=== PATIENT | female | born 1955 | race African-American/Black ===

== ENCOUNTER → 2018-03-03 | Outpatient (CLI) | payer OTHER ==
--- NOTE | 2018-03-03 16:28 | XCELERA REPORT ---
[address] [address] Lower Extremity Venous Evaluation Name: TALIB KAHN Age: 62 yrs Gender: Female : 1955 Patient Status: Outpatient Patient Location: Study Date: 03/03/2018 03:11 PM Procedure: Color flow and duplex imaging bilaterally of the veins of the lower extremities as well as the Common Femoral veins. Reason For Study: SWELLING Ordering Physician: OSWALDO STRONG Performed By: Jing De Los Santos Right Sided Venous Evaluation Normal vessel filling wall to wall, compression and augmentation as well as Colour flow down to the infrageniculate veins. Left Sided Venous Evaluation Normal vessel filling wall to wall, compression and augmentation as well as Colour flow down to the infrageniculate veins. Interpretation Summary No duplex evidence of DVT or obstruction in the bilateral lower extremities. : OSWALDO STRONG > Kody Márquez
== END ==
LOC: SP 14:58
PROVIDERS: ATTEND Internal Medicine
DX: R22.43 Localized swelling, mass and lump, lower limb, bilateral (principal)
CPT/HCPCS: 93970

== ENCOUNTER 2020-07-28 21:57 | Inpatient (IN) | payer OTHER ==
--- NOTE | 2020-07-28 22:58 | ER Document Report ---
ED Medical Screen (RME) - General Chief Complaint: Shortness Of Breath Stated Complaint: SHORTNESS OF BREATH Time Seen by Provider: 07/28/20 22:47 Primary Care Provider: OSWALDO STRONG MD [Primary Care Provider] - Follow up as needed Mode of Arrival: Ambulatory Information source: Patient Notes: HPI; a 64-year-old female presents to the emergency room complaining of worsening shortness of breath with a cough that started today. Patient states she did a drive-through cover test on July 19 was diagnosed with positive COVID on July 22. States her primary care physician Dr. Strong put her on steroids and antibiotics which she finished today. States she has been self quarantining since she had a positive test results. Denies any chest pain. PE: Alert and oriented x3. Lungs: Scattered rhonchi no wheezes no rales. Heart: Regular rate rhythm without murmurs, rubs, gallops. I have greeted and performed a rapid initial assessment of this patient. A comprehensive ED assessment and evaluation of the patient, analysis of test results and completion of the medical decision making process will be conducted by additional ED providers. I have specifically instructed the patient or family members with the patient to immediately return to any nursing staff should anything change in the patient's condition or with their chief complaint. TRAVEL OUTSIDE OF THE [place] IN LAST 30 DAYS: No Past Medical History Musculoskeltal Medical History: Reports Hx Arthritis - right knee Doctor's Discharge - Discharge Referrals: OSWALDO STRONG MD [Primary Care Provider] - Follow up as needed
[2020-07-28] MEDS ORDERED: ACETAMINOPHEN 325 MG TABLET PO ONE (23:35)
--- NOTE | 2020-07-29 00:58 | RADIOLOGY REPORT (SQ) ---
EXAM DESCRIPTION: XR CHEST 1 VIEW COMPLETED DATE/TME: 07/28/2020 22:56 CLINICAL HISTORY: 64 years, Female, cough COMPARISON: None. NUMBER OF VIEWS: 1 TECHNIQUE: Portable chest LIMITATIONS: None. FINDINGS: Cardiomegaly. Airspace opacities bilaterally. No pneumothorax. Mild elevation right hemidiaphragm IMPRESSION: Bilateral airspace opacities worrisome for pneumonia copyright 2010 [employer]- All Rights Reserved
[2020-07-29] MEDS ORDERED: DEXAMETHASONE SOD PHOS INJ 10 MG/1 ML VIAL IV ONE (03:12)
[2020-07-29 03:13] LABS: HEMATOCRIT 38.8 % (36.0-47.0); HEMOGLOBIN 13.4 g/dL (12.0-15.5); MEAN CORPUSCULAR HEMOGLOBIN 29.6 pg (27.0-33.4); MEAN CORPUSCULAR HGB CONC 34.6 g/dL (32.0-36.0); MEAN CORPUSCULAR VOLUME 86 fl (80-97); PLATELET COUNT 173 10^3/uL (150-450); RED BLOOD COUNT 4.54 10^6/uL (3.72-5.28); RED CELL DISTRIBUTION WIDTH 14.7 % (11.5-14.0); WHITE BLOOD COUNT 13.6 10^3/uL (4.0-10.5)
--- NOTE | 2020-07-29 03:21 | ER Document Report ---
ED General - General Chief Complaint: Shortness Of Breath Stated Complaint: SHORTNESS OF BREATH Time Seen by Provider: 07/28/20 22:47 Primary Care Provider: OSWALDO STRONG MD [Primary Care Provider] - Follow up as needed Mode of Arrival: Ambulatory TRAVEL OUTSIDE OF THE [place] IN LAST 30 DAYS: No - HPI Context: This is a 64-year-old female with a past medical history of diabetes and hypertension presenting to the emergency room with a chief complaint of worsening dyspnea and cough x2 days. Patient states that she had a drive- through COVID test done on July 19 which was found to be positive and reported to her on July 22. Patient had been in her usual state of health until 2 days ago on July 27 when she started to notice that she was having shortness of breath and cough. Patient reports that her physician Dr. Strong put her on steroids and antibiotics which she finished today. Patient states that she has been self quarantining since being told she had a positive COVID test. Patient denies fever, chills, chest pain, rash, loss of sense of taste, loss of sense of smell. Patient denies having any pain. She does state that her shortness of breath is worse with activity and supine position and is improved with sitting upright. Patient denies history of smoking, COPD, CHF or other pulmonary disease. Associated symptoms: Other - See HPI Exacerbated by: Other - See HPI Relieved by: Other - See HPI Past Medical History - General Information source: Patient - Social History Smoking Status: Never Smoker Frequency of alcohol use: None Drug Abuse: None Family History: Reviewed & Not Pertinent Patient has suicidal ideation: No Patient has homicidal ideation: No - Past Medical History Cardiac Medical History: Reports: Hx Hypercholesterolemia, Hx Hypertension Musculoskeletal Medical History: Reports Hx Arthritis - right knee Review of Systems - Review of Systems Constitutional: No symptoms reported EENT: No symptoms reported Cardiovascular: No symptoms reported Respiratory: Cough, Short of breath Gastrointestinal: No symptoms reported Genitourinary: No symptoms reported Female Genitourinary: No symptoms reported Musculoskeletal: No symptoms reported Skin: No symptoms reported Hematologic/Lymphatic: No symptoms reported Neurological/Psychological: No symptoms reported -: Yes All other systems reviewed and negative Physical Exam - Vital signs Vitals: Temp Pulse Resp BP Pulse Ox 102.4 F H 98 22 H 151/83 H 92 07/28/20 23:19 07/28/20 23:19 07/28/20 23:19 07/28/20 23:19 07/28/20 23:19 - Notes Notes: CONSTITUTIONAL [Vital signs reviewed, Patient appears comfortable, Alert and oriented X 3, Normal stature.] HEAD [Atraumatic, Normocephalic.] EYES [Eyes are normal to inspection, No discharge from eyes, Extraocular muscles intact, Sclera are normal, Conjunctiva are normal.] NECK [Normal ROM, No jugular venous distention, No meningeal signs, no carotid bruit. ] RESPIRATORY CHEST [Chest is nontender, patient has crackles noted bilateral lung bases.] CARDIOVASCULAR [Tachycardia, No murmurs, Normal S1 S2, No rub, No gallop.] ABDOMEN [Abdomen is nontender, No pulsatile masses, No other masses, Bowel sounds normal, No distension, No peritoneal signs, No hernias.] BACK [There is no CVA Tenderness, There is no tenderness to palpation, Normal inspection.] UPPER EXTREMITY [Inspection normal, No cyanosis, No clubbing, No edema, 2+ radial pulses.] LOWER EXTREMITY [Inspection normal, No cyanosis, No clubbing, No edema, No calf tenderness, 2+ femoral pulses.] NEURO [No focal motor deficits, No focal sensory deficits, Speech normal.] SKIN [Skin is warm, Skin is dry, Skin is normal color.] LYMPHATIC [No adenopathy in neck.] PSYCHIATRIC [Normal affect. ] Course - Re-evaluation Re-evalutation: 07/29/20 05:13 Results of ED MSE discussed with patient. Recommendation for admission d iscussed with patient patient was agreeable with this. All questions were answered. - Vital Signs Vital signs: Temp Pulse Resp BP Pulse Ox 100.3 F 92 26 H 146/84 H 88 L 07/29/20 02:08 07/29/20 02:30 07/29/20 02:30 07/29/20 02:08 07/29/20 02:30 - Laboratory Result Diagrams: 07/29/20 02:43 07/29/20 04:07 Laboratory results interpreted by me: 07/29/20 07/29/20 02:43 04:07 WBC 13.6 H RDW 14.7 H Seg Neuts % (Manual) 98 H Lymphocytes % (Manual) 2 L Monocytes % (Manual) 0 L Abs Neuts (Manual) 13.3 H Abs Lymphs (Manual) 0.3 L Abs Monocytes (Manual) 0.0 L Chloride 108 H Carbon Dioxide 21 L Glucose 174 H AST 109 H ALT 107 H - Diagnostic Test Radiology reviewed: Reports reviewed - Consults Dr. Bustos Time consulted: 05:12 - Dr. Bustos excepted patient for admission on behalf of Dr. Strong Reason for consultation: 07/29/20 05:17 COVID infection with hypoxia Discharge - Discharge Clinical Impression: COVID-19, Hypoxia Condition: Stable Disposition: ADMITTED INPATIENT Admitting Provider: Klarissa Unit Admitted: IMCU Referrals: OSWALDO STRONG MD [Primary Care Provider] - Follow up as needed
[2020-07-29 03:39] LABS: ABSOLUTE LYMPHOCYTES# (MANUAL) 0.3 10^3/uL (0.5-4.7); BASOPHILS % (MANUAL) 0 % (0-2); EOSINOPHILS % (MANUAL) 0 % (0-6); LYMPHOCYTES % (MANUAL) 2 % (13-45); MONOCYTES % (MANUAL) 0 % (3-13); SEGMENTED NEUTROPHILS % (MAN) 98 % (42-78); TOTAL CELLS COUNTED 100
[2020-07-29 03:40] LABS: OVALOCYTES SLIGHT; POIKILOCYTOSIS SLIGHT; TOXIC GRANULATION SLIGHT; TOXIC VACUOLATION PRESENT
[2020-07-29 03:41] LABS: PLATELET COMMENT ADEQUATE
[2020-07-29 04:54] LABS: ALBUMIN 3.7 g/dL (3.5-5.0); ALKALINE PHOSPHATASE 87 U/L (38-126); ANION GAP 14 (5-19); ASPARTATE AMINO TRANSFERASE 109 U/L (14-36); BILIRUBIN,DIRECT 0.4 mg/dL (0.0-0.4); BILIRUBIN,TOTAL 0.8 mg/dL (0.2-1.3); BLOOD UREA NITROGEN 18 mg/dL (7-20); CARBON DIOXIDE 21 mmol/L (22-30); CHLORIDE 108 mmol/L (98-107); GLUCOSE 174 mg/dL (75-110); POTASSIUM 4.1 mmol/L (3.6-5.0); TOTAL PROTEIN 7.4 g/dL (6.3-8.2)
[2020-07-29 05:11] LABS: ARTERIAL BLOOD BASE EXCESS -0.8 mmol/L; ARTERIAL BLOOD H2CO3 0.92 mmol/L (1.05-1.35); ARTERIAL BLOOD HCO3 21.8 mmol/L (20-24); ARTERIAL BLOOD O2 SATURATION 85.1 % (94-98); ARTERIAL BLOOD PCO2 30.6 mmHg (35-45); ARTERIAL BLOOD PH 7.47 (7.35-7.45); ARTERIAL BLOOD PO2 45.7 mmHg (80-100); ARTERIAL BLOOD TOTAL CO2 22.7 mmol/L (21-25)
[2020-07-29 05:15] LABS: ARTERIAL BLOOD FIO2 2 L
--- NOTE | 2020-07-29 06:41 | EKG REPORT ---
SEVERITY:- BORDERLINE ECG - SINUS TACHYCARDIA PROBABLE LEFT ATRIAL ABNORMALITY : Confirmed by: Maurice Duff MD 29-Jul-2020 06:41:03
[2020-07-29] MEDS ORDERED: DEXTROSE 50%-WATER 25 GM/50 ML DISP.SYRIN IV PRN ×2 (08:39)
[2020-07-29] MEDS ORDERED: GLUCAGON,HUMAN RECOMB 1 MG INJ IM PRN (08:39)
[2020-07-29] MEDS ORDERED: DEXTROSE 40% GEL 15 GM TUBE PO PRN ×2 (08:39)
[2020-07-29] MEDS: CEFTRIAXONE 1 GM/D5W RTU 1 GM/50 ML RTUPB IV SCH (09:10)
[2020-07-29] MEDS: ENOXAPARIN SODIUM INJ 40 MG/0.4 ML DISP.SYRIN SUBCUT SCH (09:10)
[2020-07-29] MEDS: DEXAMETHASONE SOD PHOSPHATE INJ 4 MG/1 ML VIAL IV SCH ×2 (09:11→21:59)
[2020-07-29] MEDS ORDERED: INSULIN LISPRO 100 UNIT/ML 3 ML VIAL ONE (09:15)
[2020-07-29] MEDS ORDERED: REMDESIVIR (EUA) 200 MG in NORMAL SALINE 250 ML IV ONE (10:00)
[2020-07-29] MEDS: LEVOFLOXACIN 750 MG/D5W RTU 750 MG/150 ML RTUPB IV SCH (12:17)
[2020-07-29] MEDS: INSULIN LISPRO 100 UNIT/ML 3 ML VIAL SUBCUT SCH ×3 (12:46→22:00)
[2020-07-29] MEDS ORDERED: (PENDING PHARMACY ID) (Dapagliflozin Propanediol [Farxiga] 10 MG) PO SCH (13:00)
[2020-07-29] MEDS ORDERED: (PENDING PHARMACY ID) (Mirabegron [Myrbetriq] 25 MG) PO SCH (13:00)
[2020-07-29] MEDS ORDERED: NETARSUDIL MESYLATE OU SCH (13:00)
[2020-07-29] MEDS ORDERED: DARIFENACIN HYDROBROMIDE 15 MG PO SCH (13:00)
[2020-07-29] MEDS ORDERED: (PENDING PHARMACY ID) (Losartan Potassium [Losartan Potassium] 100 MG) PO SCH (13:00)
[2020-07-29] MEDS: SITAGLIPTIN PHOSPHATE 50 MG TABLET PO SCH (14:02)
[2020-07-29] MEDS: LOSARTAN POTASSIUM 50 MG TABLET PO SCH (14:03)
[2020-07-29] MEDS: ASPIRIN 81 MG TABLET, ENT COATED PO SCH (14:03)
[2020-07-29 15:46] LABS: APPEARANCE,URINE SLIGHTLY-CLOUDY; BILIRUBIN,URINE NEGATIVE (NEGATIVE); COLOR,URINE YELLOW; GLUCOSE, URINE 150 mg/dL (NEGATIVE); KETONES,URINE NEGATIVE (NEGATIVE); LEUKOCYTE ESTERASE,URINE NEGATIVE (NEGATIVE); NITRITE,URINE NEGATIVE (NEGATIVE); PROTEIN,URINE 100 mg/dL (NEGATIVE); URINE SPECIFIC GRAVITY 1.027; UROBILINOGEN,URINE NEGATIVE mg/dL (<2.0)
[2020-07-29] MEDS: BRIMONIDINE TARTRATE 0.2% OPH SOLN 5 ML OU SCH (18:27)
[2020-07-29] MEDS: TIMOLOL MALEATE 0.5% OPH SOLN 5 ML OU SCH (18:27)
--- NOTE | 2020-07-29 19:09 | PDOC H&P ---
History of Present Illness Admission Date/PCP: 07/29/20 05:24 OSWALDO STRONG MD History of Present Illness: TALIB KAHN is a 64 year old female.She has a history of type 2 diabetes mellitus, hypertension, she presented to the emergency room last night for evaluation of shortness of breath, cough for the last 2 days. She had a drive- through SARS-CoV-2 testing done on July 19, it was a positive test. I had a telehealth encounter with the patient last week when she complained of nasal congestion at the time there was no shortness of breath she indicated that she was positive for SARS-CoV-2 infection but she was feeling fine overall, I prescribed dexamethasone and Z-Eliu for her and advised her to go to the ER if she became short of breath. She became short of breath in the last 2 days progressively getting worse, chest x-ray was done that demonstrated bilateral opacities of the airspace the arterial blood gas on FiO2 2 L, pH 7.47, PCO2 30.6 PO2 45.7, bicarbonate 21.8, oxygen saturation 85.1 Past Medical History Cardiac Medical History: Reports: Hyperlipidema, Hypertension Endocrine Medical History: Reports: Diabetes Mellitus Type 2 Musculoskeltal Medical History: Reports: Arthritis - right knee Social History Smoking Status: Never Smoker Electronic Cigarette use?: No Hx Recreational Drug Use: No Drugs: None Hx Prescription Drug Abuse: No Family History Family History: Reviewed & Not Pertinent Parental Family History Reviewed: Yes Children Family History Reviewed: Yes Sibling(s) Family History Reviewed.: Yes Medication/Allergy Home Medications: Aspirin [Ecotrin 81 mg EC Tablet] 81 mg PO DAILY 07/29/20 Atorvastatin Calcium [Lipitor 20 mg Tablet] 20 mg PO QHS 07/29/20 Azithromycin [Zithromax 250 mg Tablet] 250 mg PO DAILY MDD FILLED 07/24 FOR 5 DAY SUPPLY 07/29/20 Bimatoprost [Lumigan 0.01% Oph Soln 2.5 ml/Bottle] 1 drop OU QHS 07/29/20 Brimonidine Tartrate/Timolol [Combigan 0.2%-0.5% Eye Drops] 1 drop OU BID 07/29/20 Dapagliflozin Propanediol [Farxiga] 10 mg PO DAILY 07/29/20 Darifenacin Hydrobromide [Darifenacin ER] 15 mg PO DAILY 07/29/20 Dexamethasone [Decadron] 6 mg PO DAILY MDD FILLED 07/24 FOR 5 DAY SUPPLY 07/29/20 Losartan Potassium 100 mg PO DAILY 07/29/20 Mirabegron [Myrbetriq] 25 mg PO DAILY 07/29/20 Netarsudil Mesylate [Rhopressa] 1 drop OU DAILY 07/29/20 Sitagliptin Phosphate [Januvia 50 mg Tablet] 100 mg PO DAILY 07/29/20 Allergies/Adverse Reactions: acetaminophen [From Darvocet-N] Adverse Reaction (Verified 07/29/20 07:03) propoxyphene [From Darvocet-N] Adverse Reaction (Verified 07/29/20 07:03) Review of Systems Constitutional: ABSENT: chills, fever(s), headache(s), weight gain, weight loss Eyes: ABSENT: visual disturbances Ears: ABSENT: hearing changes Cardiovascular: ABSENT: chest pain, dyspnea on exertion, edema, orthropnea, palpitations Respiratory: PRESENT: cough, dyspnea, sputum Gastrointestinal: ABSENT: abdominal pain, constipation, diarrhea, hematemesis, hematochezia, nausea, vomiting Genitourinary: ABSENT: dysuria, hematuria Musculoskeletal: ABSENT: joint swelling Integumentary: ABSENT: rash, wounds Neurological: ABSENT: abnormal gait, abnormal speech, confusion, dizziness, focal weakness, syncope Psychiatric: ABSENT: anxiety, depression, homidical ideation, suicidal ideation Endocrine: ABSENT: cold intolerance, heat intolerance, menstrual abnormalities, polydipsia, polyuria Hematologic/Lymphatic: ABSENT: easy bleeding, easy bruising, lymphadenopathy Physical Exam Vital Signs: Temp Pulse Resp BP Pulse Ox 98.3 F 86 19 116/63 95 07/29/20 16:38 07/29/20 16:38 07/29/20 16:38 07/29/20 16:38 07/29/20 16:38 Intake & Output 07/28/20 07/29/20 07/30/20 06:59 06:59 06:59 Intake Total 1245 Balance 1245 Weight 111.6 kg 111.6 kg General appearance: PRESENT: no acute distress Head exam: PRESENT: atraumatic, normocephalic Eye exam: PRESENT: PERRLA Ear exam: PRESENT: normal external ear exam Mouth exam: PRESENT: moist, tongue midline Neck exam: PRESENT: full ROM Respiratory exam: PRESENT: clear to auscultation alejandra, rhonchi Cardiovascular exam: PRESENT: RRR, +S1, +S2 Vascular exam: PRESENT: normal capillary refill GI/Abdominal exam: PRESENT: normal bowel sounds, soft Rectal exam: PRESENT: deferred Neurological exam: PRESENT: alert, CN II-XII grossly intact Psychiatric exam: PRESENT: appropriate affect, normal mood Skin exam: PRESENT: dry, intact, warm Results Laboratory Results: 07/29/20 02:43 07/29/20 04:07 07/29/20 07/29/20 07/29/20 02:43 02:43 03:15 WBC 13.6 H RBC 4.54 Hgb 13.4 Hct 38.8 MCV 86 MCH 29.6 MCHC 34.6 RDW 14.7 H Plt Count 173 Seg Neutrophils % Not Reportable Carbonic Acid Cancelled HCO3/H2CO3 Ratio Cancelled ABG pH Cancelled ABG pCO2 Cancelled ABG pO2 Cancelled ABG HCO3 Cancelled ABG O2 Saturation Cancelled ABG Base Excess Cancelled FiO2 Cancelled Sodium Cancelled Potassium Cancelled Chloride Cancelled Carbon Dioxide Cancelled Anion Gap Cancelled BUN Cancelled Creatinine Cancelled Est GFR ( Amer) Cancelled Est GFR (Non-Af Amer) Cancelled Glucose Cancelled Calcium Cancelled Total Bilirubin Cancelled AST Cancelled Alkaline Phosphatase Cancelled Total Protein Cancelled Albumin Cancelled Urine Color Urine Appearance Urine pH Ur Specific [place] Urine Protein Urine Glucose (UA) Urine Ketones Urine Blood Urine Nitrite Ur Leukocyte Esterase Urine WBC (Auto) Urine RBC (Auto) 07/29/20 07/29/20 07/29/20 03:50 04:07 15:15 WBC RBC Hgb Hct MCV MCH MCHC RDW Plt Count Seg Neutrophils % Carbonic Acid 0.92 L HCO3/H2CO3 Ratio 23:1 ABG pH 7.47 H ABG pCO2 30.6 L ABG pO2 45.7 L ABG HCO3 21.8 ABG O2 Saturation 85.1 L ABG Base Excess -0.8 FiO2 2 L Sodium 142.9 Potassium 4.1 Chloride 108 H Carbon Dioxide 21 L Anion Gap 14 BUN 18 Creatinine 0.70 Est GFR ( Amer) > 60 Est GFR (Non-Af Amer) Glucose 174 H Calcium 9.0 Total Bilirubin 0.8 AST 109 H Alkaline Phosphatase 87 Total Protein 7.4 Albumin 3.7 Urine Color YELLOW Urine Appearance SLIGHTLY-CLOUDY Urine pH 5.0 Ur Specific [place] 1.027 Urine Protein 100 H Urine Glucose (UA) 150 H Urine Ketones NEGATIVE Urine Blood SMALL H Urine Nitrite NEGATIVE Ur Leukocyte Esterase NEGATIVE Urine WBC (Auto) 2 Urine RBC (Auto) 1 07/29/20 07/29/20 04:07 04:07 Creatine Kinase 508 H CK-MB (CK-2) 1.62 Impressions: Chest X-Ray 07/28/20 22:56 IMPRESSION: Bilateral airspace opacities worrisome for pneumonia copyright 2011 [employer]- All Rights Reserved Assessment & Plan - Diagnosis (1) Acute hypoxemic respiratory failure Is this a current diagnosis for this admission?: Yes Plan: She has severe hypoxemic respiratory failure presently not requiring noninvasive positive pressure ventilation, start high flow oxygen.Patient need to be monitored very closely, she is very hypoxemic the PO2 is 45.7 on FiO2 of 2 L the PO2/FiO2 ratio is less than 200 suggesting severe hypoxemia (2) Pneumonia due to COVID-19 virus Is this a current diagnosis for this admission?: Yes Plan: She has COVID-19 positive test (U07.1, COVID-19) with Acute Pneumonia (J12.89, Other viral pneumonia) (If respiratory failure or sepsis present, add as separate assessment) Cannot completely rule out bacterial pneumonia, she will be treated with intravenous dexamethasone, antibacterial, Remdesivir 200 mg IV loading dose then 100 mg IV daily for a total of 5 days (3) T2DM (type 2 diabetes mellitus) Qualifiers: Diabetes mellitus nursing home insulin use: without predatory animal exterminator use Diabetes mellitus complication status: with neurologic complications Diabetes mellitus complication detail: with polyneuropathy Qualified Code(s): E11.42 - Type 2 diabetes mellitus with diabetic polyneuropathy Is this a current diagnosis for this admission?: Yes Plan: Continue present regimen for diabetes - Time Time Spent: Greater than 70 Minutes Critical Time spent with patient: 35 or more minutes Medications reviewed and adjusted accordingly: Yes Anticipated Discharge Disposition: Home, Self Care Anticipated Discharge Timeframe: 10 days - Inpatient Certification Based on my medical assessment, after consideration of the patient's comorbidities, presenting symptoms, or acuity I expect that the services needed warrant INPATIENT care.: Yes I certify that my determination is in accordance with my understanding of Medicare's requirements for reasonable and necessary INPATIENT services [42 CFR 412.3e].: Yes
[2020-07-29] MEDS: LATANOPROST 0.005% OPH SOLN 2.5 ML OU SCH (22:00)
[2020-07-29] MEDS: ATORVASTATIN CALCIUM 20 MG TABLET PO SCH (22:00)
[2020-07-29] MEDS ORDERED: (PENDING PHARMACY ID) (Bimatoprost [Lumigan 0.01% Oph Soln 2.5 Ml/Bottle] 1 DROP) OU SCH (22:00)
[2020-07-30 06:09] LABS: HEMATOCRIT 36.8 % (36.0-47.0); HEMOGLOBIN 12.5 g/dL (12.0-15.5); MEAN CORPUSCULAR HEMOGLOBIN 28.9 pg (27.0-33.4); MEAN CORPUSCULAR VOLUME 85 fl (80-97); PLATELET COUNT 209 10^3/uL (150-450); RED BLOOD COUNT 4.33 10^6/uL (3.72-5.28); RED CELL DISTRIBUTION WIDTH 14.8 % (11.5-14.0); WHITE BLOOD COUNT 15.1 10^3/uL (4.0-10.5)
[2020-07-30 06:35] LABS: ALBUMIN 3.3 g/dL (3.5-5.0); ALKALINE PHOSPHATASE 79 U/L (38-126); ANION GAP 12 (5-19); ASPARTATE AMINO TRANSFERASE 143 U/L (14-36); BILIRUBIN,DIRECT 0.3 mg/dL (0.0-0.4); BILIRUBIN,TOTAL 0.5 mg/dL (0.2-1.3); BLOOD UREA NITROGEN 23 mg/dL (7-20); CALCIUM 8.6 mg/dL (8.4-10.2); CARBON DIOXIDE 23 mmol/L (22-30); CHLORIDE 111 mmol/L (98-107); GLUCOSE 173 mg/dL (75-110); POTASSIUM 4.4 mmol/L (3.6-5.0)
[2020-07-30 06:40] LABS: ABSOLUTE LYMPHOCYTES# (MANUAL) 0.8 10^3/uL (0.5-4.7); ABSOLUTE MONOCYTES # (MANUAL) 0.8 10^3/uL (0.1-1.4); BASOPHILS % (MANUAL) 0 % (0-2); EOSINOPHILS % (MANUAL) 0 % (0-6); LYMPHOCYTES % (MANUAL) 5 % (13-45); MONOCYTES % (MANUAL) 5 % (3-13); SEGMENTED NEUTROPHILS % (MAN) 90 % (42-78); TOTAL CELLS COUNTED 100
[2020-07-30 06:41] LABS: POLYCHROMASIA SLIGHT
[2020-07-30 06:42] LABS: ANISOCYTOSIS SLIGHT; PLATELET COMMENT ADEQUATE; SCHISTOCYTES SLIGHT; TEAR DROP CELLS SLIGHT
[2020-07-30] MEDS: INSULIN LISPRO 100 UNIT/ML 3 ML VIAL SUBCUT SCH ×4 (07:30→22:41)
[2020-07-30] MEDS: LOSARTAN POTASSIUM 50 MG TABLET PO SCH (09:10)
[2020-07-30] MEDS: CEFTRIAXONE 1 GM/D5W RTU 1 GM/50 ML RTUPB IV SCH (09:10)
[2020-07-30] MEDS: SITAGLIPTIN PHOSPHATE 50 MG TABLET PO SCH (09:10)
[2020-07-30] MEDS: DEXAMETHASONE SOD PHOSPHATE INJ 4 MG/1 ML VIAL IV SCH ×2 (09:10→22:42)
[2020-07-30] MEDS: ASPIRIN 81 MG TABLET, ENT COATED PO SCH (09:10)
[2020-07-30] MEDS: TIMOLOL MALEATE 0.5% OPH SOLN 5 ML OU SCH ×2 (09:12→17:23)
[2020-07-30] MEDS: ENOXAPARIN SODIUM INJ 40 MG/0.4 ML DISP.SYRIN SUBCUT SCH (09:13)
[2020-07-30] MEDS: BRIMONIDINE TARTRATE 0.2% OPH SOLN 5 ML OU SCH ×2 (09:13→17:24)
[2020-07-30] MEDS: REMDESIVIR (EUA) 100 MG in NORMAL SALINE 250 ML IV SCH (10:52)
[2020-07-30] MEDS: LEVOFLOXACIN 750 MG/D5W RTU 750 MG/150 ML RTUPB IV SCH (11:58)
--- NOTE | 2020-07-30 15:36 | RADIOLOGY REPORT (SQ) ---
EXAM DESCRIPTION: PICC INSERTION IMAGES COMPLETED DATE/TIME: 07/30/2020 2:26 pm REASON FOR STUDY: picc INSERTATION COMPARISON: None. FLUOROSCOPY TIME: 2 minutes 35 seconds. 1 images saved to PACS. TECHNIQUE: Fluoroscopic and ultrasound guided PICC placement. LIMITATIONS: None. PROCEDURE: After written consent and assessment were obtained, the patient was brought into the fluo roscopy room and placed supine on the table. Ultrasound evaluation of potential access sites were per formed. After successfully identifying a patent left basilic vein, the left arm was prepped and drape d in a sterile fashion along with the ultrasound probe. The entry site was anesthetized with 1% lidoc anais. A 21 gauge 7 cm needle was advanced through the skin and into the basilic vein under live ultra sound guidance. An ultrasound image was saved to PACS confirming access site. A .018 guide wire was then inserted through the needle and into the venous system. The needle was then removed and an 11 b lade scalpel was used to make a 1cm skin incision. A 5 fr peel-away sheath was advanced over the wir e and into the venous system. A measurement was then made using the existing wire and live fluoroscop ic guidance. The wire was then removed and trimmed. The PICC was advanced through the peel-away sheat h and into the venous system. The peel-away sheath was removed and the catheter was adhered to the pa tients arm with a stat lock. The catheter was then aspirated and flushed and a sterile bandage was pl aced over the access site. A fluoroscopic spot image was saved to PACS confirming the catheter tip w ithin the superior vena cava. IMPRESSION: SUCCESSFUL PLACEMENT OF A 5 FR DUAL LUMEN 43 CM PICC IN THE LEFT BASILIC VEIN. COMMENT: Patient medication list reviewed: Yes- Quality ID# 130:Eligible professional attests to doc umenting in the medical record they obtained, updated, or reviewed the patient's current medications. . Quality ID 145: Final reports for procedures using fluoroscopy that document radiation exposure renzo leslie, or exposure time and number of fluorographic images (if radiation exposure indices are not avail able) Quality ID #76: The patient was prepped and draped using maximum sterile barrier technique including cap, mask, sterile gown, sterile gloves, a large sterile sheet, hand hygiene, and 2% Chlorhexidine fo r cutaneous antisepsis. When ultrasound is used, sterile ultrasound techniques are followed requiring sterile gel and sterile probes. TECHNICAL DOCUMENTATION: JOB ID: [id number] 2010 [employer]- All Rights Reserved rev-03/11 Reading location - IP/workstation name: [email or web address]
--- NOTE | 2020-07-30 19:24 | PDOC PROGRESS REPORT ---
Subjective Progress Note for:: 07/30/20 Subjective:: Patient seen by the bedside, she was admitted yesterday for the management of could be pneumonia with a background of acute hypoxemic respiratory failure, she continues to require high flow oxygen. Reason For Visit: COVID 19 PNEUMONIA Physical Exam Vital Signs: Temp Pulse Resp BP Pulse Ox 98.2 F 77 20 141/78 H 90 L 07/30/20 16:45 07/30/20 16:45 07/30/20 16:45 07/30/20 16:45 07/30/20 16:45 Intake & Output 07/29/20 07/30/20 07/31/20 06:59 06:59 06:59 Intake Total 1922 450 Balance 1922 450 Weight 111.6 kg 111.6 kg General appearance: PRESENT: no acute distress Eye exam: PRESENT: PERRLA Respiratory exam: PRESENT: clear to auscultation alejandra, rhonchi Cardiovascular exam: PRESENT: +S1, +S2 GI/Abdominal exam: PRESENT: soft Neurological exam: PRESENT: alert Results Laboratory Results: 07/30/20 05:35 07/30/20 05:35 07/30/20 07/30/20 05:35 05:35 WBC 15.1 H RBC 4.33 Hgb 12.5 Hct 36.8 MCV 85 MCH 28.9 MCHC 34.0 RDW 14.8 H Plt Count 209 Seg Neutrophils % Not Reportable Sodium 146.2 H Potassium 4.4 Chloride 111 H Carbon Dioxide 23 Anion Gap 12 BUN 23 H Creatinine 0.72 Est GFR ( Amer) > 60 Glucose 173 H Calcium 8.6 Total Bilirubin 0.5 AST 143 H Alkaline Phosphatase 79 Total Protein 7.0 Albumin 3.3 L 07/29/20 07/29/20 07/30/20 04:07 04:07 05:35 Creatine Kinase 508 H CK-MB (CK-2) 1.62 Troponin I 0.019 Impressions: Chest X-Ray 07/28/20 22:56 IMPRESSION: Bilateral airspace opacities worrisome for pneumonia copyright 2011 [employer]- All Rights Reserved PICC Line Insertion 07/30/20 00:00 IMPRESSION: SUCCESSFUL PLACEMENT OF A 5 FR DUAL LUMEN 43 CM PICC IN THE LEFT BASILIC VEIN. Assessment & Plan - Diagnosis (1) Acute hypoxemic respiratory failure Is this a current diagnosis for this admission?: Yes Plan: Patient continues to require supplemental oxygen through a nonrebreather mask interchanged with high flow oxygen. She does not require presently mechanical ventilation or noninvasive positive pressure ventilation. (2) Pneumonia due to COVID-19 virus Is this a current diagnosis for this admission?: Yes Plan: Patient presently on IV dexamethasone 6 mg in divided doses for a total of 10 days, intravenous remdesivir for a total of 5 days, IV antibiotic (3) T2DM (type 2 diabetes mellitus) Qualifiers: Diabetes mellitus snf insulin use: without snf use Diabetes mellitus complication status: with neurologic complications Diabetes mellitus complication detail: with polyneuropathy Qualified Code(s): E11.42 - Type 2 diabetes mellitus with diabetic polyneuropathy Is this a current diagnosis for this admission?: Yes Plan: Patient continue present antidiabetic regimen - Time Time Spent with patient: 35 or more minutes Level of Care: IMCU Medications reviewed and adjusted accordingly: Yes Anticipated discharge: Home Anticipated DC Timeframe: Other - Inpatient Certification Based on my medical assessment, after consideration of the patient's comorbidities, presenting symptoms, or acuity I expect that the services needed warrant INPATIENT care.: Yes I certify that my determination is in accordance with my understanding of Medicare's requirements for reasonable and necessary INPATIENT services [42 CFR 412.3e].: Yes
[2020-07-30] MEDS: ATORVASTATIN CALCIUM 20 MG TABLET PO SCH (22:42)
[2020-07-30] MEDS: LATANOPROST 0.005% OPH SOLN 2.5 ML OU SCH (22:59)
[2020-07-31 04:22] LABS: ABSOLUTE LYMPHOCYTES (AUTO) 0.6 10^3/uL (0.5-4.7); ABSOLUTE MONOCYTES (AUTO) 0.8 10^3/uL (0.1-1.4); ABSOLUTE NEUT (AUTO) 9.7 10^3/uL (1.7-8.2); BASOPHILS % (AUTO) 0.2 % (0-2); HEMATOCRIT 37.6 % (36.0-47.0); HEMOGLOBIN 12.6 g/dL (12.0-15.5); LYMPHOCYTES % (AUTO) 5.1 % (13-45); MEAN CORPUSCULAR HEMOGLOBIN 28.7 pg (27.0-33.4); MEAN CORPUSCULAR HGB CONC 33.4 g/dL (32.0-36.0); MEAN CORPUSCULAR VOLUME 86 fl (80-97); MONOCYTES % (AUTO) 7.2 % (3-13); PLATELET COUNT 224 10^3/uL (150-450); RED BLOOD COUNT 4.37 10^6/uL (3.72-5.28); RED CELL DISTRIBUTION WIDTH 14.8 % (11.5-14.0); SEGMENTED NEUTROPHILS % (AUTO) 87.5 % (42-78); TOTAL CELLS COUNTED % (AUTO) 100 %; WHITE BLOOD COUNT 11.1 10^3/uL (4.0-10.5)
[2020-07-31 04:44] LABS: ALBUMIN 2.9 g/dL (3.5-5.0); ALKALINE PHOSPHATASE 72 U/L (38-126); ANION GAP 10 (5-19); ASPARTATE AMINO TRANSFERASE 68 U/L (14-36); BILIRUBIN,DIRECT 0.2 mg/dL (0.0-0.4); BILIRUBIN,TOTAL 0.6 mg/dL (0.2-1.3); BLOOD UREA NITROGEN 24 mg/dL (7-20); CALCIUM 8.9 mg/dL (8.4-10.2); CARBON DIOXIDE 25 mmol/L (22-30); CHLORIDE 107 mmol/L (98-107); GLUCOSE 177 mg/dL (75-110); POTASSIUM 4.5 mmol/L (3.6-5.0); TOTAL PROTEIN 6.2 g/dL (6.3-8.2)
[2020-07-31] MEDS: RINGERS SOLUTION,LACTATED 1,000 ML IV PRN (05:22)
[2020-07-31] MEDS: INSULIN LISPRO 100 UNIT/ML 3 ML VIAL SUBCUT SCH ×4 (08:27→23:08)
[2020-07-31] MEDS: CEFTRIAXONE 1 GM/D5W RTU 1 GM/50 ML RTUPB IV SCH (10:11)
[2020-07-31] MEDS: LEVOFLOXACIN 750 MG/D5W RTU 750 MG/150 ML RTUPB IV SCH (10:11)
[2020-07-31] MEDS: ENOXAPARIN SODIUM INJ 40 MG/0.4 ML DISP.SYRIN SUBCUT SCH (10:11)
[2020-07-31] MEDS: LOSARTAN POTASSIUM 50 MG TABLET PO SCH (10:12)
[2020-07-31] MEDS: ASPIRIN 81 MG TABLET, ENT COATED PO SCH (10:12)
[2020-07-31] MEDS: SITAGLIPTIN PHOSPHATE 50 MG TABLET PO SCH (10:12)
[2020-07-31] MEDS: BRIMONIDINE TARTRATE 0.2% OPH SOLN 5 ML OU SCH ×2 (10:12→18:09)
[2020-07-31] MEDS: DEXAMETHASONE SOD PHOSPHATE INJ 4 MG/1 ML VIAL IV SCH ×2 (10:12→23:07)
[2020-07-31] MEDS: TIMOLOL MALEATE 0.5% OPH SOLN 5 ML OU SCH ×2 (10:13→18:10)
[2020-07-31] MEDS: REMDESIVIR (EUA) 100 MG in NORMAL SALINE 250 ML IV SCH (11:55)
--- NOTE | 2020-07-31 17:41 | PDOC PROGRESS REPORT ---
Subjective Progress Note for:: 07/31/20 Subjective:: Patient was seen by the bedside, she continues to require high flow oxygen via a nonrebreather, she stated that the shortness of breath is improved some, a follow-up chest x-ray to be obtained today. She will continue remdesivir for a total of 5 days, dexamethasone for a total of 10 days, IV antibiotic Reason For Visit: COVID 19 PNEUMONIA Physical Exam Vital Signs: Temp Pulse Resp BP Pulse Ox 98.1 F 82 26 H 141/73 H 88 L 07/31/20 16:39 07/31/20 16:39 07/31/20 16:39 07/31/20 16:39 07/31/20 16:39 Intake & Output 07/30/20 07/31/20 08/01/20 06:59 06:59 06:59 Intake Total 1922 450 450 Balance 1922 450 450 Weight 111.6 kg 112.7 kg General appearance: PRESENT: no acute distress Eye exam: PRESENT: PERRLA Respiratory exam: PRESENT: rhonchi Cardiovascular exam: PRESENT: +S1, +S2 GI/Abdominal exam: PRESENT: soft Neurological exam: PRESENT: alert Results Laboratory Results: 07/31/20 03:45 07/31/20 03:45 07/31/20 07/31/20 03:45 03:45 WBC 11.1 H RBC 4.37 Hgb 12.6 Hct 37.6 MCV 86 MCH 28.7 MCHC 33.4 RDW 14.8 H Plt Count 224 Seg Neutrophils % 87.5 H Sodium 141.8 Potassium 4.5 Chloride 107 Carbon Dioxide 25 Anion Gap 10 BUN 24 H Creatinine 0.73 Est GFR ( Amer) > 60 Glucose 177 H Calcium 8.9 Total Bilirubin 0.6 AST 68 H Alkaline Phosphatase 72 Total Protein 6.2 L Albumin 2.9 L 07/29/20 07/29/20 07/30/20 04:07 04:07 05:35 Creatine Kinase 508 H CK-MB (CK-2) 1.62 Troponin I 0.019 Impressions: Chest X-Ray 07/28/20 22:56 IMPRESSION: Bilateral airspace opacities worrisome for pneumonia copyright 2011 [employer]- All Rights Reserved PICC Line Insertion 07/30/20 00:00 IMPRESSION: SUCCESSFUL PLACEMENT OF A 5 FR DUAL LUMEN 43 CM PICC IN THE LEFT BASILIC VEIN. Assessment & Plan - Diagnosis (1) Acute hypoxemic respiratory failure Is this a current diagnosis for this admission?: Yes Plan: Patient continues to require supplemental oxygen through a nonrebreather mask interchanged with high flow oxygen. She does not require presently mechanical ventilation or noninvasive positive pressure ventilation. (2) Pneumonia due to COVID-19 virus Is this a current diagnosis for this admission?: Yes Plan: Patient presently on IV dexamethasone 6 mg in divided doses for a total of 10 days, intravenous remdesivir for a total of 5 days, IV antibiotic (3) T2DM (type 2 diabetes mellitus) Qualifiers: Diabetes mellitus senior living insulin use: without senior living use Diabetes mellitus complication status: with neurologic complications Diabetes mellitus complication detail: with polyneuropathy Qualified Code(s): E11.42 - Type 2 diabetes mellitus with diabetic polyneuropathy Is this a current diagnosis for this admission?: Yes Plan: Patient continue present antidiabetic regimen - Time Time Spent with patient: 35 or more minutes Level of Care: IMCU Medications reviewed and adjusted accordingly: Yes Anticipated discharge: Home Anticipated DC Timeframe: Other
--- NOTE | 2020-07-31 19:26 | RADIOLOGY REPORT (SQ) ---
EXAM DESCRIPTION: CHEST SINGLE VIEW IMAGES COMPLETED DATE/TIME: 07/31/2020 6:38 pm REASON FOR STUDY: pneumonia COMPARISON: 07/29/2020 TECHNIQUE: Single frontal radiographic view of the chest acquired. NUMBER OF VIEWS: One view. LIMITATIONS: None. FINDINGS: LUNGS AND PLEURA: No pneumothorax. Similar bibasilar consolidation and interstitial thick ening. Probable small bilateral Pleural effusion. MEDIASTINUM AND HILAR STRUCTURES: Stable. HEART AND VASCULAR STRUCTURES: Stable. BONES: No acute findings. HARDWARE: Left PICC line catheter tip overlies the RA -SVC junction. OTHER: No other significant finding. IMPRESSION: Similar bibasilar consolidation and interstitial thickening. Probable small bilateral P leural effusion. TECHNICAL DOCUMENTATION: JOB ID: [id number] 2010 [employer]- All Rights Reserved Reading location - IP/workstation name: [email or web address]
[2020-07-31] MEDS: ATORVASTATIN CALCIUM 20 MG TABLET PO SCH (23:08)
[2020-07-31] MEDS: TEMAZEPAM 15 MG CAPSULE PO SCH (23:09)
[2020-07-31] MEDS: LATANOPROST 0.005% OPH SOLN 2.5 ML OU SCH (23:10)
[2020-08-01] MEDS: RINGERS SOLUTION,LACTATED 1,000 ML IV PRN ×2 (00:49→22:03)
[2020-08-01 06:20] LABS: ABSOLUTE LYMPHOCYTES (AUTO) 0.5 10^3/uL (0.5-4.7); ABSOLUTE MONOCYTES (AUTO) 0.7 10^3/uL (0.1-1.4); ABSOLUTE NEUT (AUTO) 7.3 10^3/uL (1.7-8.2); BASOPHILS % (AUTO) 0.2 % (0-2); EOSINOPHILS % (AUTO) 0.1 % (0-6); HEMATOCRIT 35.8 % (36.0-47.0); HEMOGLOBIN 12.4 g/dL (12.0-15.5); LYMPHOCYTES % (AUTO) 6.3 % (13-45); MEAN CORPUSCULAR HEMOGLOBIN 29.5 pg (27.0-33.4); MEAN CORPUSCULAR HGB CONC 34.7 g/dL (32.0-36.0); MEAN CORPUSCULAR VOLUME 85 fl (80-97); MONOCYTES % (AUTO) 7.7 % (3-13); PLATELET COUNT 214 10^3/uL (150-450); RED BLOOD COUNT 4.21 10^6/uL (3.72-5.28); RED CELL DISTRIBUTION WIDTH 14.5 % (11.5-14.0); SEGMENTED NEUTROPHILS % (AUTO) 85.7 % (42-78); TOTAL CELLS COUNTED % (AUTO) 100 %; WHITE BLOOD COUNT 8.5 10^3/uL (4.0-10.5)
[2020-08-01 06:40] LABS: ALBUMIN 2.8 g/dL (3.5-5.0); ALKALINE PHOSPHATASE 70 U/L (38-126); ANION GAP 8 (5-19); ASPARTATE AMINO TRANSFERASE 38 U/L (14-36); BILIRUBIN,DIRECT 0.2 mg/dL (0.0-0.4); BILIRUBIN,TOTAL 0.6 mg/dL (0.2-1.3); BLOOD UREA NITROGEN 18 mg/dL (7-20); CALCIUM 8.7 mg/dL (8.4-10.2); CARBON DIOXIDE 27 mmol/L (22-30); CHLORIDE 107 mmol/L (98-107); GLUCOSE 171 mg/dL (75-110); POTASSIUM 4.2 mmol/L (3.6-5.0); TOTAL PROTEIN 6.2 g/dL (6.3-8.2)
[2020-08-01] MEDS ORDERED: NORMAL SALINE 10 ML SDV (AFTER EACH USE) IV PRN (07:00)
[2020-08-01] MEDS: INSULIN LISPRO 100 UNIT/ML 3 ML VIAL SUBCUT SCH ×4 (08:25→22:11)
[2020-08-01] MEDS: SITAGLIPTIN PHOSPHATE 50 MG TABLET PO SCH (09:34)
[2020-08-01] MEDS: ASPIRIN 81 MG TABLET, ENT COATED PO SCH (09:34)
[2020-08-01] MEDS: LEVOFLOXACIN 750 MG/D5W RTU 750 MG/150 ML RTUPB IV SCH (09:35)
[2020-08-01] MEDS: DEXAMETHASONE SOD PHOSPHATE INJ 4 MG/1 ML VIAL IV SCH ×2 (09:35→22:08)
[2020-08-01] MEDS: CEFTRIAXONE 1 GM/D5W RTU 1 GM/50 ML RTUPB IV SCH (09:35)
[2020-08-01] MEDS: LOSARTAN POTASSIUM 50 MG TABLET PO SCH (09:35)
[2020-08-01] MEDS: TIMOLOL MALEATE 0.5% OPH SOLN 5 ML OU SCH ×2 (09:39→17:21)
[2020-08-01] MEDS: BRIMONIDINE TARTRATE 0.2% OPH SOLN 5 ML OU SCH ×2 (09:40→17:20)
[2020-08-01] MEDS: ENOXAPARIN SODIUM INJ 40 MG/0.4 ML DISP.SYRIN SUBCUT SCH (09:41)
[2020-08-01] MEDS: NORMAL SALINE 10 ML SDV (SCHEDULED) IV SCH ×2 (09:41→22:11)
[2020-08-01] MEDS: REMDESIVIR (EUA) 100 MG in NORMAL SALINE 250 ML IV SCH (11:27)
--- NOTE | 2020-08-01 21:53 | PDOC PROGRESS REPORT ---
Subjective Progress Note for:: 08/01/20 Subjective:: Patient was seen by the bedside, she continues to require high flow oxygen via a nonrebreather, she stated that the shortness of breath is improved some, She will continue remdesivir for a total of 5 days, dexamethasone for a total of 10 days, IV antibiotic Reason For Visit: COVID 19 PNEUMONIA Physical Exam Vital Signs: Temp Pulse Resp BP Pulse Ox 98.2 F 82 19 130/65 H 91 L 08/01/20 17:01 08/01/20 19:00 08/01/20 17:01 08/01/20 17:01 08/01/20 17:01 Intake & Output 07/31/20 08/01/20 08/02/20 06:59 06:59 06:59 Intake Total 450 1450 450 Balance 450 1450 450 Weight 112.7 kg 110.9 kg General appearance: PRESENT: no acute distress Eye exam: PRESENT: PERRLA Respiratory exam: PRESENT: clear to auscultation alejandra Cardiovascular exam: PRESENT: +S1, +S2 GI/Abdominal exam: PRESENT: soft Neurological exam: PRESENT: alert Results Laboratory Results: 08/01/20 06:00 08/01/20 06:00 08/01/20 08/01/20 06:00 06:00 WBC 8.5 RBC 4.21 Hgb 12.4 Hct 35.8 L MCV 85 MCH 29.5 MCHC 34.7 RDW 14.5 H Plt Count 214 Seg Neutrophils % 85.7 H Sodium 141.9 Potassium 4.2 Chloride 107 Carbon Dioxide 27 Anion Gap 8 BUN 18 Creatinine 0.77 Est GFR ( Amer) > 60 Glucose 171 H Calcium 8.7 Total Bilirubin 0.6 AST 38 H Alkaline Phosphatase 70 Total Protein 6.2 L Albumin 2.8 L 07/29/20 14:06 Sputum Gram Stain - Final 07/29/20 14:06 Sputum Sputum Culture - Final C.albicans/C.dubliniensis Normal Louise 07/29/20 07/29/20 07/30/20 04:07 04:07 05:35 Creatine Kinase 508 H CK-MB (CK-2) 1.62 Troponin I 0.019 Impressions: PICC Line Insertion 07/30/20 00:00 IMPRESSION: SUCCESSFUL PLACEMENT OF A 5 FR DUAL LUMEN 43 CM PICC IN THE LEFT BASILIC VEIN. Chest X-Ray 07/31/20 00:00 IMPRESSION: Similar bibasilar consolidation and interstitial thickening. Probable small bilateral Pleural effusion. Assessment & Plan - Diagnosis (1) Acute hypoxemic respiratory failure Is this a current diagnosis for this admission?: Yes Plan: Patient continues to require supplemental oxygen through a nonrebreather mask interchanged with high flow oxygen. She does not require presently mechanical ventilation or noninvasive positive pressure ventilation. (2) Pneumonia due to COVID-19 virus Is this a current diagnosis for this admission?: Yes Plan: Patient presently on IV dexamethasone 6 mg in divided doses for a total of 10 days, intravenous remdesivir for a total of 5 days, IV antibiotic (3) T2DM (type 2 diabetes mellitus) Qualifiers: Diabetes mellitus residential insulin use: without extermination supervisor use Diabetes mellitus complication status: with neurologic complications Diabetes mellitus complication detail: with polyneuropathy Qualified Code(s): E11.42 - Type 2 diabetes mellitus with diabetic polyneuropathy Is this a current diagnosis for this admission?: Yes Plan: Patient continue present antidiabetic regimen - Time Time Spent with patient: 35 or more minutes Level of Care: IMCU Medications reviewed and adjusted accordingly: Yes Anticipated discharge: Home Anticipated DC Timeframe: Other
[2020-08-01] MEDS: TEMAZEPAM 15 MG CAPSULE PO SCH (22:08)
[2020-08-01] MEDS: ATORVASTATIN CALCIUM 20 MG TABLET PO SCH (22:08)
[2020-08-01] MEDS: LATANOPROST 0.005% OPH SOLN 2.5 ML OU SCH (22:10)
[2020-08-02 07:11] LABS: HEMATOCRIT 37.5 % (36.0-47.0); MEAN CORPUSCULAR HEMOGLOBIN 29.4 pg (27.0-33.4); MEAN CORPUSCULAR HGB CONC 34.6 g/dL (32.0-36.0); MEAN CORPUSCULAR VOLUME 85 fl (80-97); PLATELET COUNT 225 10^3/uL (150-450); RED CELL DISTRIBUTION WIDTH 14.3 % (11.5-14.0); WHITE BLOOD COUNT 8.9 10^3/uL (4.0-10.5)
[2020-08-02 08:11] LABS: ABSOLUTE LYMPHOCYTES# (MANUAL) 1.2 10^3/uL (0.5-4.7); ABSOLUTE MONOCYTES # (MANUAL) 0.4 10^3/uL (0.1-1.4); BAND NEUTROPHILS % (MANUAL) 1 % (3-5); BASOPHILS % (MANUAL) 0 % (0-2); EOSINOPHILS % (MANUAL) 1 % (0-6); LYMPHOCYTES % (MANUAL) 13 % (13-45); MONOCYTES % (MANUAL) 5 % (3-13); SEGMENTED NEUTROPHILS % (MAN) 79 % (42-78); TOTAL CELLS COUNTED 100
[2020-08-02 08:13] LABS: PLATELET COMMENT ADEQUATE; RBC MORPHOLOGY COMMENT NORMO-CYTIC/CHROMIC
[2020-08-02] MEDS: INSULIN LISPRO 100 UNIT/ML 3 ML VIAL SUBCUT SCH ×4 (08:18→21:25)
[2020-08-02] MEDS: RINGERS SOLUTION,LACTATED 1,000 ML IV PRN ×2 (10:20→23:48)
[2020-08-02] MEDS: CEFTRIAXONE 1 GM/D5W RTU 1 GM/50 ML RTUPB IV SCH (10:22)
[2020-08-02] MEDS: DEXAMETHASONE SOD PHOSPHATE INJ 4 MG/1 ML VIAL IV SCH ×2 (10:23→21:19)
[2020-08-02] MEDS: ASPIRIN 81 MG TABLET, ENT COATED PO SCH (10:24)
[2020-08-02] MEDS: LOSARTAN POTASSIUM 50 MG TABLET PO SCH (10:24)
[2020-08-02] MEDS: SITAGLIPTIN PHOSPHATE 50 MG TABLET PO SCH (10:24)
[2020-08-02] MEDS: ENOXAPARIN SODIUM INJ 40 MG/0.4 ML DISP.SYRIN SUBCUT SCH (10:25)
[2020-08-02] MEDS: NORMAL SALINE 10 ML SDV (SCHEDULED) IV SCH ×2 (10:25→21:19)
[2020-08-02] MEDS: TIMOLOL MALEATE 0.5% OPH SOLN 5 ML OU SCH ×2 (10:28→17:59)
[2020-08-02] MEDS: BRIMONIDINE TARTRATE 0.2% OPH SOLN 5 ML OU SCH ×2 (10:29→18:00)
[2020-08-02] MEDS: LEVOFLOXACIN 750 MG/D5W RTU 750 MG/150 ML RTUPB IV SCH (11:30)
[2020-08-02] MEDS: REMDESIVIR (EUA) 100 MG in NORMAL SALINE 250 ML IV SCH (13:33)
--- NOTE | 2020-08-02 18:59 | RADIOLOGY REPORT (SQ) ---
EXAM DESCRIPTION: CHEST SINGLE VIEW IMAGES COMPLETED DATE/TIME: 08/02/2020 6:45 pm REASON FOR STUDY: hypoxia, sob COMPARISON: 07/31/2020 TECHNIQUE: Single frontal radiographic view of the chest acquired. NUMBER OF VIEWS: One view. LIMITATIONS: None. FINDINGS: LUNGS AND PLEURA: No pneumothorax. Similar bilateral patchy airspace disease and intersti tial opacities. No significant Pleural effusion. MEDIASTINUM AND HILAR STRUCTURES: Stable. HEART AND VASCULAR STRUCTURES: Stable. BONES: No acute findings. HARDWARE: Left-sided PICC line. OTHER: No other significant finding. IMPRESSION: Similar bilateral patchy airspace disease and interstitial opacities. TECHNICAL DOCUMENTATION: JOB ID: [id number] 2010 [employer]- All Rights Reserved Reading location - IP/workstation name: [email or web address]
--- NOTE | 2020-08-02 20:40 | PDOC PROGRESS REPORT ---
Subjective Progress Note for:: 08/02/20 Subjective:: Patient seen by the bedside, she is admitted for the management of SARS-CoV-2 pneumonia, she continues to require high flow oxygen via nasal cannula to maintain SaO2 above 95 Reason For Visit: COVID 19 PNEUMONIA Physical Exam Vital Signs: Temp Pulse Resp BP Pulse Ox 98.0 F 93 21 H 137/77 H 90 L 08/02/20 17:17 08/02/20 19:00 08/02/20 17:17 08/02/20 17:17 08/02/20 17:17 Intake & Output 08/01/20 08/02/20 08/03/20 06:59 06:59 06:59 Intake Total 1450 1930 1310 Balance 1450 1930 1310 Weight 110.9 kg 117.8 kg 117.8 kg General appearance: PRESENT: no acute distress Eye exam: PRESENT: PERRLA Respiratory exam: PRESENT: clear to auscultation alejandra, rhonchi Cardiovascular exam: PRESENT: +S1, +S2 GI/Abdominal exam: PRESENT: soft Neurological exam: PRESENT: alert, CN II-XII grossly intact Results Laboratory Results: 08/02/20 06:15 08/01/20 06:00 08/02/20 08/02/20 06:15 10:37 WBC 8.9 RBC 4.40 Hgb 13.0 Hct 37.5 MCV 85 MCH 29.4 MCHC 34.6 RDW 14.3 H Plt Count 225 Seg Neutrophils % Not Reportable Stool Occult Blood NEGATIVE 07/29/20 07/29/20 07/30/20 04:07 04:07 05:35 Creatine Kinase 508 H CK-MB (CK-2) 1.62 Troponin I 0.019 Impressions: PICC Line Insertion 07/30/20 00:00 IMPRESSION: SUCCESSFUL PLACEMENT OF A 5 FR DUAL LUMEN 43 CM PICC IN THE LEFT BASILIC VEIN. Chest X-Ray 08/02/20 00:00 IMPRESSION: Similar bilateral patchy airspace disease and interstitial opacities. Assessment & Plan - Diagnosis (1) Acute hypoxemic respiratory failure Is this a current diagnosis for this admission?: Yes Plan: Continue high flow oxygen via nasal cannula to maintain SaO2 above 95 (2) Pneumonia due to COVID-19 virus Is this a current diagnosis for this admission?: Yes Plan: Patient presently on IV dexamethasone 6 mg in divided doses for a total of 10 days, intravenous remdesivir for a total of 5 days, IV antibiotic (3) T2DM (type 2 diabetes mellitus) Qualifiers: Diabetes mellitus usp insulin use: without middle or intermediate school principal use Diabetes mellitus complication status: with neurologic complications Diabetes mellitus complication detail: with polyneuropathy Qualified Code(s): E11.42 - Type 2 diabetes mellitus with diabetic polyneuropathy Is this a current diagnosis for this admission?: Yes Plan: Patient continue present antidiabetic regimen - Time Time Spent with patient: 35 or more minutes Level of Care: IMCU Medications reviewed and adjusted accordingly: Yes Anticipated discharge: Home Anticipated DC Timeframe: Other
[2020-08-02] MEDS: ATORVASTATIN CALCIUM 20 MG TABLET PO SCH (21:18)
[2020-08-02] MEDS: TEMAZEPAM 15 MG CAPSULE PO SCH (21:18)
[2020-08-02] MEDS: LATANOPROST 0.005% OPH SOLN 2.5 ML OU SCH (21:26)
[2020-08-03] MEDS: INSULIN LISPRO 100 UNIT/ML 3 ML VIAL SUBCUT SCH ×4 (09:17→22:17)
[2020-08-03] MEDS: LOSARTAN POTASSIUM 50 MG TABLET PO SCH (09:18)
[2020-08-03] MEDS: SITAGLIPTIN PHOSPHATE 50 MG TABLET PO SCH (09:18)
[2020-08-03] MEDS: ASPIRIN 81 MG TABLET, ENT COATED PO SCH (09:18)
[2020-08-03] MEDS: ENOXAPARIN SODIUM INJ 40 MG/0.4 ML DISP.SYRIN SUBCUT SCH (09:19)
[2020-08-03] MEDS: DEXAMETHASONE SOD PHOSPHATE INJ 4 MG/1 ML VIAL IV SCH ×2 (09:19→22:19)
[2020-08-03] MEDS: CEFTRIAXONE 1 GM/D5W RTU 1 GM/50 ML RTUPB IV SCH (09:20)
[2020-08-03] MEDS: NORMAL SALINE 10 ML SDV (SCHEDULED) IV SCH ×2 (09:24→22:17)
[2020-08-03] MEDS: BRIMONIDINE TARTRATE 0.2% OPH SOLN 5 ML OU SCH ×2 (10:40→17:59)
[2020-08-03] MEDS: TIMOLOL MALEATE 0.5% OPH SOLN 5 ML OU SCH ×2 (10:41→18:00)
[2020-08-03] MEDS: LEVOFLOXACIN 750 MG/D5W RTU 750 MG/150 ML RTUPB IV SCH (11:23)
--- NOTE | 2020-08-03 14:30 | PDOC PROGRESS REPORT ---
Subjective Progress Note for:: 08/03/20 Subjective:: Patient seen by the bedside she continues to require high flow oxygen, she has blood in the stool. Reason For Visit: COVID 19 PNEUMONIA Physical Exam Vital Signs: Temp Pulse Resp BP Pulse Ox 97.6 F 79 16 117/65 90 L 08/03/20 11:41 08/03/20 11:41 08/03/20 13:42 08/03/20 11:41 08/03/20 13:42 Intake & Output 08/02/20 08/03/20 08/04/20 06:59 06:59 06:59 Intake Total 1929 2253 700 Balance 19293 700 Weight 117.8 kg 116.1 kg General appearance: PRESENT: no acute distress Eye exam: PRESENT: PERRLA Respiratory exam: PRESENT: clear to auscultation alejandra Cardiovascular exam: PRESENT: +S1, +S2 GI/Abdominal exam: PRESENT: soft Neurological exam: PRESENT: alert Results Laboratory Results: 08/02/20 06:15 08/01/20 06:00 07/29/20 04:07 Blood Blood Culture - Final NO GROWTH IN 5 DAYS 07/29/20 04:15 Blood Blood Culture - Final NO GROWTH IN 5 DAYS 07/29/20 07/29/20 07/30/20 04:07 04:07 05:35 Creatine Kinase 508 H CK-MB (CK-2) 1.62 Troponin I 0.019 Impressions: PICC Line Insertion 07/30/20 00:00 IMPRESSION: SUCCESSFUL PLACEMENT OF A 5 FR DUAL LUMEN 43 CM PICC IN THE LEFT BASILIC VEIN. Chest X-Ray 08/02/20 00:00 IMPRESSION: Similar bilateral patchy airspace disease and interstitial opacities. Assessment & Plan - Diagnosis (1) Acute hypoxemic respiratory failure Is this a current diagnosis for this admission?: Yes Plan: She will continue high flow oxygen, presently not requiring noninvasive positive pressure ventilation BiPAP. (2) Pneumonia due to COVID-19 virus Is this a current diagnosis for this admission?: Yes Plan: She has finished 5 days of intravenous remdesivir she will continue IV dexamethasone for 10 days (3) T2DM (type 2 diabetes mellitus) Qualifiers: Diabetes mellitus terminal clerk insulin use: without terminal clerk use Diabetes mellitus complication status: with neurologic complications Diabetes mellitus complication detail: with polyneuropathy Qualified Code(s): E11.42 - Type 2 diabetes mellitus with diabetic polyneuropathy Is this a current diagnosis for this admission?: Yes Plan: Patient continue present antidiabetic regimen - Time Time Spent with patient: 35 or more minutes Level of Care: IMCU Medications reviewed and adjusted accordingly: Yes Anticipated discharge: Home Anticipated DC Timeframe: within 72 hours - Inpatient Certification Based on my medical assessment, after consideration of the patient's comorbidities, presenting symptoms, or acuity I expect that the services needed warrant INPATIENT care.: Yes I certify that my determination is in accordance with my understanding of Medicare's requirements for reasonable and necessary INPATIENT services [42 CFR 412.3e].: Yes
[2020-08-03] MEDS: RINGERS SOLUTION,LACTATED 1,000 ML IV PRN (18:01)
[2020-08-03] MEDS: TEMAZEPAM 15 MG CAPSULE PO SCH (22:17)
[2020-08-03] MEDS: ATORVASTATIN CALCIUM 20 MG TABLET PO SCH (22:17)
[2020-08-03] MEDS: LATANOPROST 0.005% OPH SOLN 2.5 ML OU SCH (22:18)
[2020-08-04] MEDS: INSULIN LISPRO 100 UNIT/ML 3 ML VIAL SUBCUT SCH ×4 (08:59→22:12)
[2020-08-04] MEDS: LEVOFLOXACIN 750 MG/D5W RTU 750 MG/150 ML RTUPB IV SCH (09:02)
[2020-08-04] MEDS: CEFTRIAXONE 1 GM/D5W RTU 1 GM/50 ML RTUPB IV SCH (09:02)
[2020-08-04] MEDS: ENOXAPARIN SODIUM INJ 40 MG/0.4 ML DISP.SYRIN SUBCUT SCH (09:03)
[2020-08-04] MEDS: DEXAMETHASONE SOD PHOSPHATE INJ 4 MG/1 ML VIAL IV SCH ×2 (09:03→22:13)
[2020-08-04] MEDS: SITAGLIPTIN PHOSPHATE 50 MG TABLET PO SCH (09:04)
[2020-08-04] MEDS: LOSARTAN POTASSIUM 50 MG TABLET PO SCH (09:04)
[2020-08-04] MEDS: NORMAL SALINE 10 ML SDV (SCHEDULED) IV SCH ×2 (09:05→22:14)
[2020-08-04] MEDS: ASPIRIN 81 MG TABLET, ENT COATED PO SCH (09:06)
[2020-08-04] MEDS: TIMOLOL MALEATE 0.5% OPH SOLN 5 ML OU SCH ×2 (09:08→17:39)
[2020-08-04] MEDS: BRIMONIDINE TARTRATE 0.2% OPH SOLN 5 ML OU SCH ×2 (09:09→17:38)
--- NOTE | 2020-08-04 13:35 | PDOC PROGRESS REPORT ---
Subjective Progress Note for:: 08/04/20 Subjective:: Patient seen by the bedside she has been requiring high flow oxygen, will titrate down the oxygen concentration Reason For Visit: COVID 19 PNEUMONIA Physical Exam Vital Signs: Temp Pulse Resp BP Pulse Ox 98.3 F 83 19 114/56 L 91 L 08/04/20 12:05 08/04/20 12:05 08/04/20 12:05 08/04/20 12:05 08/04/20 12:05 Intake & Output 08/03/20 08/04/20 08/05/20 06:59 06:59 06:59 Intake Total 2253 2420 Balance 2253 2420 Weight 116.1 kg 116.1 kg General appearance: PRESENT: no acute distress Eye exam: PRESENT: PERRLA Respiratory exam: PRESENT: clear to auscultation alejandra Cardiovascular exam: PRESENT: +S1, +S2 GI/Abdominal exam: PRESENT: soft Neurological exam: PRESENT: alert Results Laboratory Results: 08/02/20 06:15 08/01/20 06:00 07/29/20 07/29/20 07/30/20 04:07 04:07 05:35 Creatine Kinase 508 H CK-MB (CK-2) 1.62 Troponin I 0.019 Impressions: PICC Line Insertion 07/30/20 00:00 IMPRESSION: SUCCESSFUL PLACEMENT OF A 5 FR DUAL LUMEN 43 CM PICC IN THE LEFT BASILIC VEIN. Chest X-Ray 08/02/20 00:00 IMPRESSION: Similar bilateral patchy airspace disease and interstitial opacities. Assessment & Plan - Diagnosis (1) Acute hypoxemic respiratory failure Is this a current diagnosis for this admission?: Yes Plan: Patient has been requiring high flow oxygen, will titrate down the oxygen concentration to 3 L via nasal cannula (2) Pneumonia due to COVID-19 virus Is this a current diagnosis for this admission?: Yes Plan: She has finished 5 days of intravenous remdesivir she will continue IV dexamethasone for 10 days (3) T2DM (type 2 diabetes mellitus) Qualifiers: Diabetes mellitus custodial insulin use: without custodial use Diabetes mellitus complication status: with neurologic complications Diabetes mellitus complication detail: with polyneuropathy Qualified Code(s): E11.42 - Type 2 diabetes mellitus with diabetic polyneuropathy Is this a current diagnosis for this admission?: Yes Plan: Patient continue present antidiabetic regimen - Time Time Spent with patient: 35 or more minutes Level of Care: IMCU Medications reviewed and adjusted accordingly: Yes Anticipated discharge: Home Anticipated DC Timeframe: within 72 hours
[2020-08-04 15:00] LABS: HEMATOCRIT 38.4 % (36.0-47.0); MEAN CORPUSCULAR HEMOGLOBIN 29.1 pg (27.0-33.4); MEAN CORPUSCULAR HGB CONC 33.7 g/dL (32.0-36.0); MEAN CORPUSCULAR VOLUME 86 fl (80-97); PLATELET COUNT 242 10^3/uL (150-450); RED BLOOD COUNT 4.46 10^6/uL (3.72-5.28); RED CELL DISTRIBUTION WIDTH 14.5 % (11.5-14.0); WHITE BLOOD COUNT 11.6 10^3/uL (4.0-10.5)
[2020-08-04 15:21] LABS: ALKALINE PHOSPHATASE 98 U/L (38-126); ANION GAP 11 (5-19); ASPARTATE AMINO TRANSFERASE 26 U/L (14-36); BILIRUBIN,DIRECT 0.2 mg/dL (0.0-0.4); BILIRUBIN,TOTAL 0.4 mg/dL (0.2-1.3); BLOOD UREA NITROGEN 18 mg/dL (7-20); CARBON DIOXIDE 25 mmol/L (22-30); CHLORIDE 104 mmol/L (98-107); GLUCOSE 266 mg/dL (75-110); POTASSIUM 4.3 mmol/L (3.6-5.0); TOTAL PROTEIN 6.4 g/dL (6.3-8.2)
[2020-08-04 15:28] LABS: ABSOLUTE LYMPHOCYTES# (MANUAL) 0.7 10^3/uL (0.5-4.7); ABSOLUTE MONOCYTES # (MANUAL) 0.3 10^3/uL (0.1-1.4); BASOPHILS % (MANUAL) 0 % (0-2); EOSINOPHILS % (MANUAL) 0 % (0-6); LYMPHOCYTES % (MANUAL) 6 % (13-45); MONOCYTES % (MANUAL) 3 % (3-13); SEGMENTED NEUTROPHILS % (MAN) 91 % (42-78); TOTAL CELLS COUNTED 100
[2020-08-04 15:29] LABS: ANISOCYTOSIS SLIGHT; OVALOCYTES SLIGHT; PLATELET CLUMPS PRESENT; PLATELET COMMENT ADEQUATE; PLATELET LARGE PRESENT
[2020-08-04] MEDS: TEMAZEPAM 15 MG CAPSULE PO SCH (22:12)
[2020-08-04] MEDS: ATORVASTATIN CALCIUM 20 MG TABLET PO SCH (22:12)
[2020-08-04] MEDS: RINGERS SOLUTION,LACTATED 1,000 ML IV PRN (22:15)
[2020-08-04] MEDS: LATANOPROST 0.005% OPH SOLN 2.5 ML OU SCH (22:15)
[2020-08-05] MEDS: GUAIFENESIN SYRP 200 MG/10 ML UDC PO PRN ×3 (00:10→22:40)
[2020-08-05 06:45] LABS: ABSOLUTE LYMPHOCYTES (AUTO) 0.6 10^3/uL (0.5-4.7); ABSOLUTE MONOCYTES (AUTO) 0.5 10^3/uL (0.1-1.4); ABSOLUTE NEUT (AUTO) 8.3 10^3/uL (1.7-8.2); BASOPHILS % (AUTO) 0.3 % (0-2); EOSINOPHILS % (AUTO) 0.2 % (0-6); HEMATOCRIT 36.3 % (36.0-47.0); HEMOGLOBIN 12.3 g/dL (12.0-15.5); LYMPHOCYTES % (AUTO) 6.6 % (13-45); MEAN CORPUSCULAR HEMOGLOBIN 28.8 pg (27.0-33.4); MEAN CORPUSCULAR HGB CONC 33.8 g/dL (32.0-36.0); MEAN CORPUSCULAR VOLUME 85 fl (80-97); MONOCYTES % (AUTO) 5.1 % (3-13); PLATELET COUNT 211 10^3/uL (150-450); RED BLOOD COUNT 4.27 10^6/uL (3.72-5.28); RED CELL DISTRIBUTION WIDTH 14.3 % (11.5-14.0); SEGMENTED NEUTROPHILS % (AUTO) 87.8 % (42-78); TOTAL CELLS COUNTED % (AUTO) 100 %; WHITE BLOOD COUNT 9.5 10^3/uL (4.0-10.5)
[2020-08-05 07:08] LABS: ALBUMIN 2.8 g/dL (3.5-5.0); ALKALINE PHOSPHATASE 94 U/L (38-126); ANION GAP 6 (5-19); ASPARTATE AMINO TRANSFERASE 24 U/L (14-36); BILIRUBIN,DIRECT 0.2 mg/dL (0.0-0.4); BILIRUBIN,TOTAL 0.5 mg/dL (0.2-1.3); BLOOD UREA NITROGEN 15 mg/dL (7-20); CALCIUM 8.6 mg/dL (8.4-10.2); CARBON DIOXIDE 29 mmol/L (22-30); CHLORIDE 105 mmol/L (98-107); GLUCOSE 240 mg/dL (75-110); POTASSIUM 4.3 mmol/L (3.6-5.0); TOTAL PROTEIN 5.9 g/dL (6.3-8.2)
[2020-08-05] MEDS: INSULIN LISPRO 100 UNIT/ML 3 ML VIAL SUBCUT SCH ×4 (08:31→22:22)
[2020-08-05 09:20] LABS: APPEARANCE,URINE CLEAR; BILIRUBIN,URINE NEGATIVE (NEGATIVE); COLOR,URINE STRAW; GLUCOSE, URINE NEGATIVE (NEGATIVE); KETONES,URINE NEGATIVE (NEGATIVE); LEUKOCYTE ESTERASE,URINE NEGATIVE (NEGATIVE); NITRITE,URINE NEGATIVE (NEGATIVE); PROTEIN,URINE NEGATIVE (NEGATIVE); UROBILINOGEN,URINE NEGATIVE mg/dL (<2.0)
[2020-08-05] MEDS: TIMOLOL MALEATE 0.5% OPH SOLN 5 ML OU SCH ×2 (11:09→17:37)
[2020-08-05] MEDS: ASPIRIN 81 MG TABLET, ENT COATED PO SCH (11:09)
[2020-08-05] MEDS: LOSARTAN POTASSIUM 50 MG TABLET PO SCH (11:09)
[2020-08-05] MEDS: ENOXAPARIN SODIUM INJ 40 MG/0.4 ML DISP.SYRIN SUBCUT SCH (11:09)
[2020-08-05] MEDS: SITAGLIPTIN PHOSPHATE 50 MG TABLET PO SCH (11:09)
[2020-08-05] MEDS: DEXAMETHASONE SOD PHOSPHATE INJ 4 MG/1 ML VIAL IV SCH ×2 (11:10→22:20)
[2020-08-05] MEDS: BRIMONIDINE TARTRATE 0.2% OPH SOLN 5 ML OU SCH ×2 (11:10→17:37)
[2020-08-05] MEDS: NORMAL SALINE 10 ML SDV (SCHEDULED) IV SCH ×2 (11:25→22:21)
[2020-08-05] MEDS: RINGERS SOLUTION,LACTATED 1,000 ML IV PRN (14:57)
--- NOTE | 2020-08-05 18:07 | PDOC PROGRESS REPORT ---
Subjective Progress Note for:: 08/05/20 Subjective:: Patient seen by the bedside she has been requiring high flow oxygen,alternating with oxygen via nasal canula Reason For Visit: COVID 19 PNEUMONIA Physical Exam Vital Signs: Temp Pulse Resp BP Pulse Ox 98.2 F 93 18 127/57 H 90 L 08/05/20 16:10 08/05/20 16:10 08/05/20 16:10 08/05/20 16:10 08/05/20 16:10 Intake & Output 08/04/20 08/05/20 08/06/20 06:59 06:59 06:59 Intake Total 2420 2460 1000 Balance 2420 2460 1000 Weight 116.1 kg 118.3 kg General appearance: PRESENT: no acute distress Eye exam: PRESENT: PERRLA Respiratory exam: PRESENT: clear to auscultation alejandra Cardiovascular exam: PRESENT: +S1, +S2 GI/Abdominal exam: PRESENT: soft Neurological exam: PRESENT: alert, CN II-XII grossly intact Results Laboratory Results: 08/05/20 05:30 08/05/20 05:30 08/05/20 08/05/20 08/05/20 05:30 05:30 08:40 WBC 9.5 RBC 4.27 Hgb 12.3 Hct 36.3 MCV 85 MCH 28.8 MCHC 33.8 RDW 14.3 H Plt Count 211 Seg Neutrophils % 87.8 H Sodium 139.8 Potassium 4.3 Chloride 105 Carbon Dioxide 29 Anion Gap 6 BUN 15 Creatinine 0.66 Est GFR ( Amer) > 60 Glucose 240 H Calcium 8.6 Total Bilirubin 0.5 AST 24 Alkaline Phosphatase 94 Total Protein 5.9 L Albumin 2.8 L Urine Color STRAW Urine Appearance CLEAR Urine pH 7.0 Ur Specific [place] 1.010 Urine Protein NEGATIVE Urine Glucose (UA) NEGATIVE Urine Ketones NEGATIVE Urine Blood NEGATIVE Urine Nitrite NEGATIVE Ur Leukocyte Esterase NEGATIVE Urine WBC (Auto) 1 Urine RBC (Auto) 0 07/29/20 07/29/20 07/30/20 04:07 04:07 05:35 Creatine Kinase 508 H CK-MB (CK-2) 1.62 Troponin I 0.019 Impressions: PICC Line Insertion 07/30/20 00:00 IMPRESSION: SUCCESSFUL PLACEMENT OF A 5 FR DUAL LUMEN 43 CM PICC IN THE LEFT BASILIC VEIN. Chest X-Ray 08/02/20 00:00 IMPRESSION: Similar bilateral patchy airspace disease and interstitial opacities. Assessment & Plan - Diagnosis (1) Acute hypoxemic respiratory failure Is this a current diagnosis for this admission?: Yes Plan: Patient has been requiring high flow oxygen, will titrate down the oxygen concentration to 3 L via nasal cannula (2) Pneumonia due to COVID-19 virus Is this a current diagnosis for this admission?: Yes Plan: She has finished 5 days of intravenous remdesivir she will continue IV dexamethasone for 10 days (3) T2DM (type 2 diabetes mellitus) Qualifiers: Diabetes mellitus fpc insulin use: without fpc use Diabetes mellitus complication status: with neurologic complications Diabetes mellitus complication detail: with polyneuropathy Qualified Code(s): E11.42 - Type 2 diabetes mellitus with diabetic polyneuropathy Is this a current diagnosis for this admission?: Yes Plan: Patient continue present antidiabetic regimen - Time Time Spent with patient: 35 or more minutes Level of Care: IMCU Anticipated discharge: Home Anticipated DC Timeframe: within 48 hours - Inpatient Certification Based on my medical assessment, after consideration of the patient's comorbidities, presenting symptoms, or acuity I expect that the services needed warrant INPATIENT care.: Yes I certify that my determination is in accordance with my understanding of Medicare's requirements for reasonable and necessary INPATIENT services [42 CFR 412.3e].: Yes
--- NOTE | 2020-08-05 18:53 | RADIOLOGY REPORT (SQ) ---
EXAM DESCRIPTION: CHEST SINGLE VIEW IMAGES COMPLETED DATE/TIME: 08/05/2020 6:42 pm REASON FOR STUDY: pneumonia COMPARISON: 08/02/2020 EXAM PARAMETERS: NUMBER OF VIEWS: One view. TECHNIQUE: Single frontal radiographic view of the chest acquired. RADIATION DOSE: NA LIMITATIONS: None. FINDINGS: LUNGS AND PLEURA: Patchy infiltrates bilaterally. No significant change. MEDIASTINUM AND HILAR STRUCTURES: No masses. Contour normal. HEART AND VASCULAR STRUCTURES: Heart size is borderline. No avril pulmonary edema. BONES: No acute findings. HARDWARE: Left-sided PICC with the tip of the catheter in the superior vena cava. OTHER: No other significant finding. IMPRESSION: Bilateral pneumonia, likely an atypical infectious/ inflammatory process. Borderline he art size without avril pulmonary edema. No significant interval change. TECHNICAL DOCUMENTATION: JOB ID: [id number] 2010 [employer]- All Rights Reserved Reading location - IP/workstation name: [email or web address]
[2020-08-05] MEDS: ATORVASTATIN CALCIUM 20 MG TABLET PO SCH (22:20)
[2020-08-05] MEDS: TEMAZEPAM 15 MG CAPSULE PO SCH (22:20)
[2020-08-05] MEDS: LATANOPROST 0.005% OPH SOLN 2.5 ML OU SCH (22:21)
[2020-08-06] MEDS: RINGERS SOLUTION,LACTATED 1,000 ML IV PRN ×2 (04:40→20:03)
[2020-08-06] MEDS: INSULIN LISPRO 100 UNIT/ML 3 ML VIAL SUBCUT SCH ×4 (08:06→22:09)
[2020-08-06] MEDS: SITAGLIPTIN PHOSPHATE 50 MG TABLET PO SCH (10:04)
[2020-08-06] MEDS: ASPIRIN 81 MG TABLET, ENT COATED PO SCH (10:04)
[2020-08-06] MEDS: LOSARTAN POTASSIUM 50 MG TABLET PO SCH (10:04)
[2020-08-06] MEDS: DEXAMETHASONE SOD PHOSPHATE INJ 4 MG/1 ML VIAL IV SCH ×2 (10:05→22:08)
[2020-08-06] MEDS: ENOXAPARIN SODIUM INJ 40 MG/0.4 ML DISP.SYRIN SUBCUT SCH (10:06)
[2020-08-06] MEDS: BRIMONIDINE TARTRATE 0.2% OPH SOLN 5 ML OU SCH ×2 (10:09→17:09)
[2020-08-06] MEDS: NORMAL SALINE 10 ML SDV (SCHEDULED) IV SCH ×2 (10:10→22:11)
[2020-08-06] MEDS: TIMOLOL MALEATE 0.5% OPH SOLN 5 ML OU SCH ×2 (10:10→17:09)
--- NOTE | 2020-08-06 20:35 | PDOC PROGRESS REPORT ---
Subjective Progress Note for:: 08/06/20 Subjective:: Patient seen by the bedside Chest x-ray is stable, hopefully discharge home tomorrow Reason For Visit: COVID 19 PNEUMONIA Physical Exam Vital Signs: Temp Pulse Resp BP Pulse Ox 97.9 F 84 20 135/70 H 93 08/06/20 16:24 08/06/20 19:00 08/06/20 16:24 08/06/20 16:24 08/06/20 16:24 Intake & Output 08/05/20 08/06/20 08/07/20 06:59 06:59 06:59 Intake Total 2460 2200 1000 Output Total 250 2000 Balance 2460 1950 -1000 Weight 118.3 kg 117.1 kg General appearance: PRESENT: no acute distress Eye exam: PRESENT: PERRLA Respiratory exam: PRESENT: clear to auscultation alejandra Cardiovascular exam: PRESENT: +S1, +S2 GI/Abdominal exam: PRESENT: soft Neurological exam: PRESENT: alert Results Laboratory Results: 08/05/20 05:30 08/05/20 05:30 07/29/20 07/29/20 07/30/20 04:07 04:07 05:35 Creatine Kinase 508 H CK-MB (CK-2) 1.62 Troponin I 0.019 Impressions: PICC Line Insertion 07/30/20 00:00 IMPRESSION: SUCCESSFUL PLACEMENT OF A 5 FR DUAL LUMEN 43 CM PICC IN THE LEFT BASILIC VEIN. Chest X-Ray 08/05/20 00:00 IMPRESSION: Bilateral pneumonia, likely an atypical infectious/ inflammatory process. Borderline heart size without avril pulmonary edema. No significant interval change. Assessment & Plan - Diagnosis (1) Acute hypoxemic respiratory failure Is this a current diagnosis for this admission?: Yes Plan: Patient has been requiring high flow oxygen, will titrate down the oxygen concentration to 3 L via nasal cannula (2) Pneumonia due to COVID-19 virus Is this a current diagnosis for this admission?: Yes Plan: She has finished 5 days of intravenous remdesivir she will continue IV dexamethasone for 10 days (3) T2DM (type 2 diabetes mellitus) Qualifiers: Diabetes mellitus care home insulin use: without care home use Diabetes mellitus complication status: with neurologic complications Diabetes mellitus complication detail: with polyneuropathy Qualified Code(s): E11.42 - Type 2 diabetes mellitus with diabetic polyneuropathy Is this a current diagnosis for this admission?: Yes Plan: Patient continue present antidiabetic regimen - Time Time Spent with patient: 25-34 minutes Level of Care: IMCU Medications reviewed and adjusted accordingly: Yes Anticipated discharge: Home Anticipated DC Timeframe: within 24 hours
[2020-08-06] MEDS: ATORVASTATIN CALCIUM 20 MG TABLET PO SCH (22:09)
[2020-08-06] MEDS: TEMAZEPAM 15 MG CAPSULE PO SCH (22:09)
[2020-08-06] MEDS: LATANOPROST 0.005% OPH SOLN 2.5 ML OU SCH (22:09)
[2020-08-07 06:47] LABS: APPEARANCE,URINE CLEAR; BILIRUBIN,URINE NEGATIVE (NEGATIVE); COLOR,URINE STRAW; GLUCOSE, URINE NEGATIVE (NEGATIVE); KETONES,URINE NEGATIVE (NEGATIVE); LEUKOCYTE ESTERASE,URINE NEGATIVE (NEGATIVE); NITRITE,URINE NEGATIVE (NEGATIVE); PROTEIN,URINE NEGATIVE (NEGATIVE); URINE SPECIFIC GRAVITY 1.011; UROBILINOGEN,URINE NEGATIVE mg/dL (<2.0)
[2020-08-07] MEDS: INSULIN LISPRO 100 UNIT/ML 3 ML VIAL SUBCUT SCH ×4 (08:43→22:05)
[2020-08-07] MEDS: LOSARTAN POTASSIUM 50 MG TABLET PO SCH (09:54)
[2020-08-07] MEDS: ENOXAPARIN SODIUM INJ 40 MG/0.4 ML DISP.SYRIN SUBCUT SCH (09:54)
[2020-08-07] MEDS: SITAGLIPTIN PHOSPHATE 50 MG TABLET PO SCH (09:54)
[2020-08-07] MEDS: ASPIRIN 81 MG TABLET, ENT COATED PO SCH (09:54)
[2020-08-07] MEDS: DEXAMETHASONE SOD PHOSPHATE INJ 4 MG/1 ML VIAL IV SCH ×2 (09:55→22:06)
[2020-08-07] MEDS: NORMAL SALINE 10 ML SDV (SCHEDULED) IV SCH ×2 (09:58→22:00)
[2020-08-07] MEDS: BRIMONIDINE TARTRATE 0.2% OPH SOLN 5 ML OU SCH ×2 (10:01→18:28)
[2020-08-07] MEDS: TIMOLOL MALEATE 0.5% OPH SOLN 5 ML OU SCH ×2 (10:02→18:28)
[2020-08-07] MEDS: RINGERS SOLUTION,LACTATED 1,000 ML IV PRN (12:04)
--- NOTE | 2020-08-07 16:28 | RADIOLOGY REPORT (SQ) ---
EXAM DESCRIPTION: CTA CHEST IMAGES COMPLETED DATE/TIME: 08/07/2020 4:07 pm REASON FOR STUDY: hypoxemia COMPARISON: None. TECHNIQUE: CT scan of the chest performed using helical scanning technique with dynamic intravenous contrast injection. Images reviewed with lung, soft tissue and bone windows. Reconstructed coronal and sagittal MPR images reviewed. Additional 3 dimensional post-processing performed to develop Maximal Intensity Projection images (AL P). All images stored on PACS. All CT scanners at this facility use dose modulation, iterative reconstruction, and/or weight based d osing when appropriate to reduce radiation dose to as low as reasonably achievable (ALARA). [facility]: Dose Right [facility]: CareDose [facility]: Dose Right [facility]: Teradose 4D [facility]: [facility] [employer] CONTRAST TYPE AND DOSE: contrast/concentration: Isovue 350.00 mmol/ml; Total Contrast Delivered: 75. 0 ml; Total Saline Delivered: 55.0 ml Contrast bolus adequate for pulmonary arteries and aorta. RENAL FUNCTION: BUN 15, creatinine 0.66 RADIATION DOSE: CT Rad equipment meets quality standard of care and radiation dose reduction techniq ues were employed. CTDIvol: 13.2 - 34.4 mGy. DLP: 1169 mGy-cm. . LIMITATIONS: None. FINDINGS: LUNGS AND PLEURA: There is diffuse bilateral airspace disease consistent with multifocal p neumonia possibly edema. AORTA AND GREAT VESSELS: No aneurysm. Contrast bolus not optimized for the aorta. HEART: Small pericardial effusion. No significant coronary artery calcifications. PULMONARY ARTERIES: Bilateral segmental and subsegmental pulmonary emboli. HILAR AND MEDIASTINAL STRUCTURES: Mediastinal adenopathy this could be reactive less likely neoplasti c. HARDWARE: None in the chest. UPPER ABDOMEN: Left hilar fullness most likely adenopathy. THYROID AND OTHER SOFT TISSUES: No masses. No adenopathy. BONES: No acute or significant finding. 3D MIPS: Confirm above findings. OTHER: No other significant finding. IMPRESSION: 1. Bilateral segmental and subsegmental pulmonary emboli. 2. Diffuse bilateral alveolar airspace disease consistent with multifocal pneumonia or pulmonary yuan ma. Possibly atypical pneumonia. 3. Mediastinal adenopathy most likely reactive. 4. Small pericardial effusion. COMMENT: Quality ID # [id number]: Final reports with documentation of one or more dose reduction techniques (e.g., Automated exposure control, adjustment of the mA and/or kV according to patient size, use of iterative reconstruction technique) TECHNICAL DOCUMENTATION: JOB ID: [id number] 2010 [employer]- All Rights Reserved Reading location - IP/workstation name: [email or web address]
[2020-08-07] MEDS ORDERED: HEPARIN SODIUM,PORCINE/D5W 25,000 UNIT/250 ML RTUINJ IV PRN (17:38)
[2020-08-07] MEDS ORDERED: HEPARIN SOD (PORCINE) 1,000 UNIT/ML 10 ML VIAL IV ONE (18:00)
[2020-08-07] MEDS ORDERED: HEPARIN SOD (PORCINE) 1,000 UNIT/ML 10 ML VIAL IV PRN (18:00)
[2020-08-07 18:22] LABS: ABSOLUTE LYMPHOCYTES (AUTO) 0.8 10^3/uL (0.5-4.7); ABSOLUTE MONOCYTES (AUTO) 0.5 10^3/uL (0.1-1.4); ABSOLUTE NEUT (AUTO) 9.2 10^3/uL (1.7-8.2); BASOPHILS % (AUTO) 0.2 % (0-2); EOSINOPHILS % (AUTO) 0.2 % (0-6); HEMATOCRIT 35.6 % (36.0-47.0); HEMOGLOBIN 12.2 g/dL (12.0-15.5); LYMPHOCYTES % (AUTO) 7.4 % (13-45); MEAN CORPUSCULAR HEMOGLOBIN 28.9 pg (27.0-33.4); MEAN CORPUSCULAR HGB CONC 34.3 g/dL (32.0-36.0); MEAN CORPUSCULAR VOLUME 84 fl (80-97); MONOCYTES % (AUTO) 4.5 % (3-13); PLATELET COUNT 200 10^3/uL (150-450); RED BLOOD COUNT 4.22 10^6/uL (3.72-5.28); RED CELL DISTRIBUTION WIDTH 14.4 % (11.5-14.0); SEGMENTED NEUTROPHILS % (AUTO) 87.7 % (42-78); TOTAL CELLS COUNTED % (AUTO) 100 %; WHITE BLOOD COUNT 10.5 10^3/uL (4.0-10.5)
[2020-08-07 18:29] LABS: INTERNATIONAL RATION (INR) 1.02; PROTHROMBIN TIME 13.6 SEC (11.4-15.4)
[2020-08-07 18:30] LABS: PARTIAL THROMBOPLASTIN TIME 29.1 SEC (23.5-35.8)
--- NOTE | 2020-08-07 18:59 | PDOC PROGRESS REPORT ---
Subjective Progress Note for:: 08/07/20 Subjective:: Patient was supposed to be discharged today but she has persistent hypoxemia, pulmonary embolism was suspected especially because she has SARS-CoV-2 pneumonia, there has been reported cases of increased thromboembolic disorder in SARS-CoV-2 infection, CT angiogram of the chest was obtained, it demonstrated diffuse bilateral airspace disease consistent with multifocal pneumonia possibly edema also found was bilateral segmental and subsegmental pulmonary emboli Reason For Visit: COVID 19 PNEUMONIA Physical Exam Vital Signs: Temp Pulse Resp BP Pulse Ox 98.4 F 88 18 136/88 H 100 08/07/20 16:00 08/07/20 16:00 08/07/20 16:00 08/07/20 16:00 08/07/20 16:00 Intake & Output 08/06/20 08/07/20 08/08/20 06:59 06:59 06:59 Intake Total 2200 1430 1000 Output Total 250 2420 Balance 1950 -990 1000 Weight 117.1 kg 116.4 kg 116.4 kg General appearance: PRESENT: no acute distress Eye exam: PRESENT: PERRLA Respiratory exam: PRESENT: rhonchi Cardiovascular exam: PRESENT: +S1, +S2 Neurological exam: PRESENT: alert, CN II-XII grossly intact Results Laboratory Results: 08/07/20 18:09 08/05/20 05:30 08/07/20 08/07/20 05:44 18:09 WBC 10.5 RBC 4.22 Hgb 12.2 Hct 35.6 L MCV 84 MCH 28.9 MCHC 34.3 RDW 14.4 H Plt Count 200 Seg Neutrophils % 87.7 H Urine Color STRAW Urine Appearance CLEAR Urine pH 6.0 Ur Specific [place] 1.011 Urine Protein NEGATIVE Urine Glucose (UA) NEGATIVE Urine Ketones NEGATIVE Urine Blood SMALL H Urine Nitrite NEGATIVE Ur Leukocyte Esterase NEGATIVE Urine WBC (Auto) 0 Urine RBC (Auto) 1 07/29/20 07/29/20 07/30/20 04:07 04:07 05:35 Creatine Kinase 508 H CK-MB (CK-2) 1.62 Troponin I 0.019 Impressions: PICC Line Insertion 07/30/20 00:00 IMPRESSION: SUCCESSFUL PLACEMENT OF A 5 FR DUAL LUMEN 43 CM PICC IN THE LEFT BASILIC VEIN. Chest X-Ray 08/05/20 00:00 IMPRESSION: Bilateral pneumonia, likely an atypical infectious/ inflammatory process. Borderline heart size without avril pulmonary edema. No significant interval change. Chest/Abdomen CTA 08/07/20 00:00 IMPRESSION: 1. Bilateral segmental and subsegmental pulmonary emboli. 2. Diffuse bilateral alveolar airspace disease consistent with multifocal pneumonia or pulmonary edema. Possibly atypical pneumonia. 3. Mediastinal adenopathy most likely reactive. 4. Small pericardial effusion. Assessment & Plan - Diagnosis (1) Acute hypoxemic respiratory failure Is this a current diagnosis for this admission?: Yes (2) Pneumonia due to COVID-19 virus Is this a current diagnosis for this admission?: Yes (3) T2DM (type 2 diabetes mellitus) Qualifiers: Diabetes mellitus care home insulin use: without care home use Diabetes mellitus complication status: with neurologic complications Diabetes mellitus complication detail: with polyneuropathy Qualified Code(s): E11.42 - Type 2 diabetes mellitus with diabetic polyneuropathy Is this a current diagnosis for this admission?: Yes (4) Bilateral pulmonary embolism Is this a current diagnosis for this admission?: Yes Plan: Patient with bilateral pulmonary emboli in the context of COVID-19 pneumonia, start IV heparin for 5 days then will transition to Eliquis for 6 months - Time Time Spent with patient: 35 or more minutes Level of Care: ICU Medications reviewed and adjusted accordingly: Yes Anticipated discharge: Home Anticipated DC Timeframe: Other - 5 days
[2020-08-07 21:39] LABS: APPEARANCE,URINE CLEAR; BILIRUBIN,URINE NEGATIVE (NEGATIVE); COLOR,URINE YELLOW; GLUCOSE, URINE NEGATIVE (NEGATIVE); KETONES,URINE NEGATIVE (NEGATIVE); LEUKOCYTE ESTERASE,URINE NEGATIVE (NEGATIVE); NITRITE,URINE NEGATIVE (NEGATIVE); PROTEIN,URINE NEGATIVE (NEGATIVE); URINE SPECIFIC GRAVITY 1.041; UROBILINOGEN,URINE NEGATIVE mg/dL (<2.0)
[2020-08-07] MEDS: LATANOPROST 0.005% OPH SOLN 2.5 ML OU SCH (22:06)
[2020-08-07] MEDS: ATORVASTATIN CALCIUM 20 MG TABLET PO SCH (22:06)
[2020-08-07] MEDS: GUAIFENESIN SYRP 200 MG/10 ML UDC PO PRN (22:06)
[2020-08-08 06:26] LABS: APPEARANCE,URINE SLIGHTLY-CLOUDY; BILIRUBIN,URINE NEGATIVE (NEGATIVE); COLOR,URINE RED; GLUCOSE, URINE NEGATIVE (NEGATIVE); KETONES,URINE NEGATIVE (NEGATIVE); LEUKOCYTE ESTERASE,URINE NEGATIVE (NEGATIVE); NITRITE,URINE NEGATIVE (NEGATIVE); PROTEIN,URINE 30 mg/dL (NEGATIVE); URINE SPECIFIC GRAVITY 1.011; UROBILINOGEN,URINE NEGATIVE mg/dL (<2.0)
[2020-08-08] MEDS: INSULIN LISPRO 100 UNIT/ML 3 ML VIAL SUBCUT SCH ×4 (08:46→21:48)
[2020-08-08] MEDS: APIXABAN 5 MG TABLET PO SCH ×2 (08:57→17:26)
[2020-08-08] MEDS: ASPIRIN 81 MG TABLET, ENT COATED PO SCH (09:52)
[2020-08-08] MEDS: SITAGLIPTIN PHOSPHATE 50 MG TABLET PO SCH (09:52)
[2020-08-08] MEDS: LOSARTAN POTASSIUM 50 MG TABLET PO SCH (09:52)
[2020-08-08] MEDS: BRIMONIDINE TARTRATE 0.2% OPH SOLN 5 ML OU SCH ×2 (09:53→17:27)
[2020-08-08] MEDS: TIMOLOL MALEATE 0.5% OPH SOLN 5 ML OU SCH ×2 (09:54→17:26)
[2020-08-08] MEDS: NORMAL SALINE 10 ML SDV (SCHEDULED) IV SCH ×2 (09:55→22:00)
--- NOTE | 2020-08-08 21:41 | PDOC PROGRESS REPORT ---
Subjective Progress Note for:: 08/08/20 Subjective:: Patient with diffuse pulmonary emboli, yesterday she was started on IV heparin, she developed hematuria, the IV heparin discontinued. patient is started on Eliquis 5 mg p.o. twice daily, typically Eliquis 10 mg p.o. twice daily is the loading dose of Eliquis for PE but because she has hematuria on anticoagulant, I will skip the loading dose because this could increase the risk of a rebleed, ordinarily if a patient bleed on anticoagulation especially hematuria is an indication for cystoscopy, she has no risk factors for bladder neoplasm, she does not smoke tobacco, and hematuria is probably related to supratherapeutic PTT/PT Reason For Visit: COVID 19 PNEUMONIA Physical Exam Vital Signs: Temp Pulse Resp BP Pulse Ox 98.1 F 76 16 114/60 94 08/08/20 20:23 08/08/20 20:23 08/08/20 20:23 08/08/20 20:23 08/08/20 20:23 Intake & Output 08/07/20 08/08/20 08/09/20 06:59 06:59 06:59 Intake Total 1430 1735 630 Output Total 2420 1000 200 Balance -990 735 430 Weight 116.4 kg 116.2 kg General appearance: PRESENT: no acute distress Eye exam: PRESENT: PERRLA Respiratory exam: PRESENT: clear to auscultation alejandra Cardiovascular exam: PRESENT: +S1, +S2 GI/Abdominal exam: PRESENT: soft Neurological exam: PRESENT: alert, CN II-XII grossly intact Results Laboratory Results: 08/07/20 18:09 08/05/20 05:30 08/07/20 08/08/20 21:06 05:55 Urine Color YELLOW RED Urine Appearance CLEAR SLIGHTLY-CLOUDY Urine pH 5.0 6.0 Ur Specific [place] 1.041 1.011 Urine Protein NEGATIVE 30 H Urine Glucose (UA) NEGATIVE NEGATIVE Urine Ketones NEGATIVE NEGATIVE Urine Blood SMALL H LARGE H Urine Nitrite NEGATIVE NEGATIVE Ur Leukocyte Esterase NEGATIVE NEGATIVE Urine WBC (Auto) 0 25 Urine RBC (Auto) 1 >182 07/29/20 07/29/20 07/30/20 04:07 04:07 05:35 Creatine Kinase 508 H CK-MB (CK-2) 1.62 Troponin I 0.019 Impressions: PICC Line Insertion 07/30/20 00:00 IMPRESSION: SUCCESSFUL PLACEMENT OF A 5 FR DUAL LUMEN 43 CM PICC IN THE LEFT BASILIC VEIN. Chest X-Ray 08/05/20 00:00 IMPRESSION: Bilateral pneumonia, likely an atypical infectious/ inflammatory process. Borderline heart size without avril pulmonary edema. No significant interval change. Chest/Abdomen CTA 08/07/20 00:00 IMPRESSION: 1. Bilateral segmental and subsegmental pulmonary emboli. 2. Diffuse bilateral alveolar airspace disease consistent with multifocal pneumonia or pulmonary edema. Possibly atypical pneumonia. 3. Mediastinal adenopathy most likely reactive. 4. Small pericardial effusion. 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 twice daily - Time Time Spent with patient: 25-34 minutes Level of Care: IMCU Medications reviewed and adjusted accordingly: Yes Anticipated discharge: Home Anticipated DC Timeframe: within 72 hours
[2020-08-08] MEDS: LATANOPROST 0.005% OPH SOLN 2.5 ML OU SCH (21:46)
[2020-08-08] MEDS: GUAIFENESIN SYRP 200 MG/10 ML UDC PO PRN (21:46)
[2020-08-08] MEDS: ATORVASTATIN CALCIUM 20 MG TABLET PO SCH (21:47)
[2020-08-09] MEDS: GUAIFENESIN SYRP 200 MG/10 ML UDC PO PRN (03:20)
[2020-08-09] MEDS: APIXABAN 5 MG TABLET PO SCH ×2 (09:36→17:02)
[2020-08-09] MEDS: LOSARTAN POTASSIUM 50 MG TABLET PO SCH (09:36)
[2020-08-09] MEDS: INSULIN LISPRO 100 UNIT/ML 3 ML VIAL SUBCUT SCH ×3 (09:36→17:03)
[2020-08-09] MEDS: SITAGLIPTIN PHOSPHATE 50 MG TABLET PO SCH (09:36)
[2020-08-09] MEDS: ASPIRIN 81 MG TABLET, ENT COATED PO SCH (09:36)
[2020-08-09] MEDS: TIMOLOL MALEATE 0.5% OPH SOLN 5 ML OU SCH ×2 (09:37→17:11)
[2020-08-09] MEDS: BRIMONIDINE TARTRATE 0.2% OPH SOLN 5 ML OU SCH ×2 (09:37→17:10)
[2020-08-09 10:33] LABS: HEMATOCRIT 36.8 % (36.0-47.0); HEMOGLOBIN 12.4 g/dL (12.0-15.5); MEAN CORPUSCULAR HEMOGLOBIN 28.9 pg (27.0-33.4); MEAN CORPUSCULAR HGB CONC 33.6 g/dL (32.0-36.0); MEAN CORPUSCULAR VOLUME 86 fl (80-97); PLATELET COUNT 192 10^3/uL (150-450); RED BLOOD COUNT 4.29 10^6/uL (3.72-5.28); RED CELL DISTRIBUTION WIDTH 14.7 % (11.5-14.0); WHITE BLOOD COUNT 8.1 10^3/uL (4.0-10.5)
[2020-08-09 10:52] LABS: APPEARANCE,URINE CLEAR; BILIRUBIN,URINE NEGATIVE (NEGATIVE); COLOR,URINE STRAW; GLUCOSE, URINE NEGATIVE (NEGATIVE); KETONES,URINE NEGATIVE (NEGATIVE); LEUKOCYTE ESTERASE,URINE NEGATIVE (NEGATIVE); NITRITE,URINE NEGATIVE (NEGATIVE); PROTEIN,URINE NEGATIVE (NEGATIVE); URINE SPECIFIC GRAVITY 1.009; UROBILINOGEN,URINE NEGATIVE mg/dL (<2.0)
[2020-08-09] MEDS: NORMAL SALINE 10 ML SDV (SCHEDULED) IV SCH (10:58)
[2020-08-09 11:00] LABS: ALBUMIN 2.9 g/dL (3.5-5.0); ALKALINE PHOSPHATASE 84 U/L (38-126); ANION GAP 7 (5-19); ASPARTATE AMINO TRANSFERASE 24 U/L (14-36); BILIRUBIN,DIRECT 0.3 mg/dL (0.0-0.4); BILIRUBIN,TOTAL 0.5 mg/dL (0.2-1.3); BLOOD UREA NITROGEN 15 mg/dL (7-20); CALCIUM 8.7 mg/dL (8.4-10.2); CARBON DIOXIDE 26 mmol/L (22-30); CHLORIDE 108 mmol/L (98-107); GLUCOSE 187 mg/dL (75-110); POTASSIUM 3.4 mmol/L (3.6-5.0); TOTAL PROTEIN 5.9 g/dL (6.3-8.2)
[2020-08-09 17:33] VITALS: BP 136/88
--- NOTE | 2020-08-09 20:51 | PDOC DISCHARGE SUMMARY ---
Impression - Admit/DC Date/PCP Admission Date/Primary Care Provider: 07/29/20 05:24 OSWALDO STRONG MD Discharge Date: 08/09/20 - Discharge Diagnosis (1) Acute hypoxemic respiratory failure Is this a current diagnosis for this admission?: Yes (2) Pneumonia due to COVID-19 virus Is this a current diagnosis for this admission?: Yes (3) T2DM (type 2 diabetes mellitus) Is this a current diagnosis for this admission?: Yes (4) Bilateral pulmonary embolism Is this a current diagnosis for this admission?: Yes - Additional Information Discharge Diet: As Tolerated Discharge Activity: Activity As Tolerated, Balance Activity w/Rest, Slowly Increase Activity Referrals: OSWALDO STRONG MD [Primary Care Provider] - 08/19/20 10:15 am Prescriptions: Apixaban [Eliquis 5 mg Tablet] 5 mg PO BID #60 tablet Home Medications: Aspirin [Ecotrin 81 mg EC Tablet] 81 mg PO DAILY 07/29/20 Atorvastatin Calcium [Lipitor 20 mg Tablet] 20 mg PO QHS 07/29/20 Azithromycin [Zithromax 250 mg Tablet] 250 mg PO DAILY MDD FILLED 07/24 FOR 5 DAY SUPPLY 07/29/20 Bimatoprost [Lumigan 0.01% Oph Soln 2.5 ml/Bottle] 1 drop OU QHS 07/29/20 Brimonidine Tartrate/Timolol [Combigan 0.2%-0.5% Eye Drops] 1 drop OU BID 07/29/20 Dapagliflozin Propanediol [Farxiga] 10 mg PO DAILY 07/29/20 Darifenacin Hydrobromide [Darifenacin ER] 15 mg PO DAILY 07/29/20 Dexamethasone [Decadron] 6 mg PO DAILY MDD FILLED 07/24 FOR 5 DAY SUPPLY 07/29/20 Losartan Potassium 100 mg PO DAILY 07/29/20 Mirabegron [Myrbetriq] 25 mg PO DAILY 07/29/20 Netarsudil Mesylate [Rhopressa] 1 drop OU DAILY 07/29/20 Sitagliptin Phosphate [Januvia 50 mg Tablet] 100 mg PO DAILY 07/29/20 Apixaban [Eliquis 5 mg Tablet] 5 mg PO BID #60 tablet 08/09/20 History of Present Illiness History of Present Illness: TALIB KAHN is a 64 year old female.She has a history of type 2 diabetes mellitus, hypertension, she presented to the emergency room last night for evaluation of shortness of breath, cough for the last 2 days. She had a drive- through SARS-CoV-2 testing done on July 19, it was a positive test. I had a telehealth encounter with the patient last week when she complained of nasal congestion at the time there was no shortness of breath she indicated that she was positive for SARS-CoV-2 infection but she was feeling fine overall, I prescribed dexamethasone and Z-Eliu for her and advised her to go to the ER if she became short of breath. She became short of breath in the last 2 days progressively getting worse, chest x-ray was done that demonstrated bilateral opacities of the airspace the arterial blood gas on FiO2 2 L, pH 7.47, PCO2 30.6 PO2 45.7, bicarbonate 21.8, oxygen saturation 85.1 Hospital Course Hospital Course: Patient was admitted for the management of COVID-19 positive test (U07.1, COVID- 19) with Acute Pneumonia (J12.89, Other viral pneumonia) (If respiratory failure or sepsis present, add as separate assessment), She has acute hypoxemic respiratory failure, she required supplemental oxygen, 2 L, via nasal cannula.She was treated with IV REMDESIVIR and IV dexamethasone for the recommended duration despite treatment with recommended regimen patient continued to be hypoxemic with low oxygen saturation on mild exertion as suspected pulmonary embolism, there are reported cases of increased thromboembolic disease in SARS-CoV-[address] angiogram was obtained, demonstrated bilateral pulmonary embolism involving both the segmental and subsegmental branches of the pulmonary vasculature. She was started on IV heparin, she developed hematuria on the IV heparin, the bleed was thought to be related to supratherapeutic PT/INR. The IV heparin was discontinued and patient was started on Eliquis, she has not had any episode of hematuria since started on Eliquis, she was not given the loading dose of Eliquis which is 10 mg 1 tablet twice a day because of concern for increased bleed risk of hematuria it was also felt that there was no indication for cystoscopy ordinarily hematuria in the setting of use of anticoagulation cystoscopy is typically indicated but in this case it was felt that it was not indicated the bleeding is related to supratherapeutic PT/INR..She requires oxygen temporarily on discharge Physical Exam Vital Signs: Temp Pulse Resp BP Pulse Ox 97.8 F 73 18 136/88 H 86 L 08/09/20 17:30 08/09/20 17:30 08/09/20 17:30 08/09/20 17:30 08/09/20 17:30 Intake & Output 08/08/20 08/09/20 08/10/20 06:59 06:59 06:59 Intake Total 1735 1001 450 Output Total 1000 200 Balance 735 801 450 Weight 116.2 kg 116.2 kg General appearance: PRESENT: no acute distress Eye exam: PRESENT: PERRLA Respiratory exam: PRESENT: clear to auscultation alejandra Cardiovascular exam: PRESENT: +S1, +S2 GI/Abdominal exam: PRESENT: soft Neurological exam: PRESENT: alert, CN II-XII grossly intact Results Laboratory Results: WBC 8.1 10^3/uL (4.0-10.5) 08/09/20 10:00 RBC 4.29 10^6/uL (3.72-5.28) 08/09/20 10:00 Hgb 12.4 g/dL (12.0-15.5) 08/09/20 10:00 Hct 36.8 % (36.0-47.0) 08/09/20 10:00 MCV 86 fl (80-97) 08/09/20 10:00 MCH 28.9 pg (27.0-33.4) 08/09/20 10:00 MCHC 33.6 g/dL (32.0-36.0) 08/09/20 10:00 RDW 14.7 % (11.5-14.0) H 08/09/20 10:00 Plt Count 192 10^3/uL (150-450) 08/09/20 10:00 Lymph % (Auto) 7.4 % (13-45) L 08/07/20 18:09 [place] % (Auto) 4.5 % (3-13) 08/07/20 18:09 Eos % (Auto) 0.2 % (0-6) 08/07/20 18:09 Baso % (Auto) 0.2 % (0-2) 08/07/20 18:09 Absolute Neuts (auto) 9.2 10^3/uL (1.7-8.2) H 08/07/20 18:09 Absolute Lymphs (auto) 0.8 10^3/uL (0.5-4.7) 08/07/20 18:09 Absolute Monos (auto) 0.5 10^3/uL (0.1-1.4) 08/07/20 18:09 Absolute Eos (auto) 0.0 10^3/uL (0.0-0.6) 08/07/20 18:09 Absolute Basos (auto) 0.0 10^3/uL (0.0-0.2) 08/07/20 18:09 Total Counted 100 08/04/20 14:45 Seg Neutrophils % 87.7 % (42-78) H 08/07/20 18:09 Seg Neuts % (Manual) 91 % (42-78) H 08/04/20 14:45 Band Neutrophils % 1 % (3-5) L 08/02/20 06:15 Lymphocytes % (Manual) 6 % (13-45) L 08/04/20 14:45 Atypical Lymphs % 1 % (0) 08/02/20 06:15 Monocytes % (Manual) 3 % (3-13) 08/04/20 14:45 Eosinophils % (Manual) 0 % (0-6) 08/04/20 14:45 Basophils % (Manual) 0 % (0-2) 08/04/20 14:45 Abs Neuts (Manual) 10.6 10^3/uL (1.7-8.2) H 08/04/20 14:45 Abs Lymphs (Manual) 0.7 10^3/uL (0.5-4.7) 08/04/20 14:45 Abs Monocytes (Manual) 0.3 10^3/uL (0.1-1.4) 08/04/20 14:45 Absolute Eos (Manual) 0.0 10^3/uL (0.0-0.6) 08/04/20 14:45 Abs Basophils (Manual) 0.0 10^3/uL (0.0-0.2) 08/04/20 14:45 Toxic Granulation SLIGHT 07/29/20 02:43 Toxic Vacuolation PRESENT 07/29/20 02:43 Clumped Platelets PRESENT 08/04/20 14:45 Large Platelets PRESENT 08/04/20 14:45 Platelet Comment ADEQUATE 08/04/20 14:45 Polychromasia SLIGHT 07/30/20 05:35 Poikilocytosis SLIGHT 07/29/20 02:43 Anisocytosis SLIGHT 08/04/20 14:45 Tear Drop Cells SLIGHT 07/30/20 05:35 Ovalocytes SLIGHT 08/04/20 14:45 Schistocytes SLIGHT 07/30/20 05:35 RBC Morph Comment NORMO-CYTIC/CHROMIC 08/02/20 06:15 PT 13.6 SEC (11.4-15.4) 08/07/20 18:09 INR 1.02 08/07/20 18:09 APTT 28.1 SEC (23.5-35.8) 08/09/20 10:00 Carbonic Acid 0.92 mmol/L (1.05-1.35) L 07/29/20 03:50 HCO3/H2CO3 Ratio 23:1 07/29/20 03:50 ABG pH 7.47 (7.35-7.45) H 07/29/20 03:50 ABG pCO2 30.6 mmHg (35-45) L 07/29/20 03:50 ABG pO2 45.7 mmHg (80-100) L 07/29/20 03:50 ABG HCO3 21.8 mmol/L (20-24) 07/29/20 03:50 ABG Total CO2 22.7 mmol/L (21-25) 07/29/20 03:50 ABG O2 Saturation 85.1 % (94-98) L 07/29/20 03:50 ABG Base Excess -0.8 mmol/L 07/29/20 03:50 FiO2 2 L 07/29/20 03:50 Sodium 141.3 mmol/L (137-145) 08/09/20 10:00 Potassium 3.4 mmol/L (3.6-5.0) L 08/09/20 10:00 Chloride 108 mmol/L (98-107) H 08/09/20 10:00 Carbon Dioxide 26 mmol/L (22-30) 08/09/20 10:00 Anion Gap 7 (5-19) 08/09/20 10:00 BUN 15 mg/dL (7-20) 08/09/20 10:00 Creatinine 0.72 mg/dL (0.52-1.25) 08/09/20 10:00 Est GFR ( Amer) > 60 (>60) 08/09/20 10:00 Est GFR (Non-Af Amer) Cancelled 07/29/20 02:43 Est GFR (MDRD) Non-Af > 60 (>60) 08/09/20 10:00 Glucose 187 mg/dL (75-110) H 08/09/20 10:00 POC Glucose 150 mg/dL (70-110) H 08/09/20 16:49 Hemoglobin A1c % 6.3 % (4.7-6.0) H 07/30/20 05:35 Calcium 8.7 mg/dL (8.4-10.2) 08/09/20 10:00 Total Bilirubin 0.5 mg/dL (0.2-1.3) 08/09/20 10:00 Direct Bilirubin 0.3 mg/dL (0.0-0.4) 08/09/20 10:00 Neonat Total Bilirubin Not Reportable 08/09/20 10:00 Neonat Direct Bilirubin Not Reportable 08/09/20 10:00 Neonat Indirect Bili Not Reportable 08/09/20 10:00 AST 24 U/L (14-36) 08/09/20 10:00 ALT 32 U/L (<35) 08/09/20 10:00 Alkaline Phosphatase 84 U/L (38-126) 08/09/20 10:00 Creatine Kinase 508 U/L (30-135) H 07/29/20 04:07 CK-MB (CK-2) 1.62 ng/mL (<4.55) 07/29/20 04:07 Troponin I 0.019 ng/mL 07/30/20 05:35 Total Protein 5.9 g/dL (6.3-8.2) L 08/09/20 10:00 Albumin 2.9 g/dL (3.5-5.0) L 08/09/20 10:00 EGFR Cancelled 07/29/20 02:43 Urine Color STRAW 08/09/20 10:00 Urine Appearance CLEAR 08/09/20 10:00 Urine pH 6.0 (5.0-9.0) 08/09/20 10:00 Ur Specific [place] 1.009 08/09/20 10:00 Urine Protein NEGATIVE mg/dL (NEGATIVE) 08/09/20 10:00 Urine Glucose (UA) NEGATIVE mg/dL (NEGATIVE) 08/09/20 10:00 Urine Ketones NEGATIVE mg/dL (NEGATIVE) 08/09/20 10:00 Urine Blood SMALL (NEGATIVE) H 08/09/20 10:00 Urine Nitrite NEGATIVE (NEGATIVE) 08/09/20 10:00 Urine Bilirubin NEGATIVE (NEGATIVE) 08/09/20 10:00 Urine Urobilinogen NEGATIVE mg/dL (<2.0) 08/09/20 10:00 Ur Leukocyte Esterase NEGATIVE (NEGATIVE) 08/09/20 10:00 Urine WBC (Auto) 1 /HPF 08/09/20 10:00 U Hyaline Cast (Auto) 1 /LPF 07/29/20 15:15 Urine RBC (Auto) 0 /HPF 08/09/20 10:00 Squamous Epi Cells Auto 1 /HPF 08/09/20 10:00 Urine Mucus (Auto) RARE /LPF 08/09/20 10:00 Urine Ascorbic Acid NEGATIVE (NEGATIVE) 08/09/20 10:00 Stool Occult Blood NEGATIVE (NEGATIVE) 08/02/20 10:37 07/29/20 07/30/20 04:07 05:35 CK-MB (CK-2) 1.62 Troponin I 0.019 Impressions: Chest X-Ray 07/28/20 22:56 IMPRESSION: Bilateral airspace opacities worrisome for pneumonia copyright 2011 [employer]- All Rights Reserved PICC Line Insertion 07/30/20 00:00 IMPRESSION: SUCCESSFUL PLACEMENT OF A 5 FR DUAL LUMEN 43 CM PICC IN THE LEFT BASILIC VEIN. Chest X-Ray 07/31/20 00:00 IMPRESSION: Similar bibasilar consolidation and interstitial thickening. Probable small bilateral Pleural effusion. Chest X-Ray 08/02/20 00:00 IMPRESSION: Similar bilateral patchy airspace disease and interstitial opacities. Chest X-Ray 08/05/20 00:00 IMPRESSION: Bilateral pneumonia, likely an atypical infectious/ inflammatory process. Borderline heart size without avril pulmonary edema. No significant interval change. Chest/Abdomen CTA 08/07/20 00:00 IMPRESSION: 1. Bilateral segmental and subsegmental pulmonary emboli. 2. Diffuse bilateral alveolar airspace disease consistent with multifocal pneumonia or pulmonary edema. Possibly atypical pneumonia. 3. Mediastinal adenopathy most likely reactive. 4. Small pericardial effusion. Stroke Is this a Stroke Patient?: No Acute Heart Failure Is this a Heart Failure Patient?: No
== END 2020-08-09 18:25 | disposition home or self-care (01) | DRG 177 ==
LOC: ER 21:57 → EH 07-29 05:24 → 3N 07-29 06:30
PROVIDERS: ADMIT Internal Medicine; ATTEND Internal Medicine
PROC: XW033E5 Introduction of Remdesivir Anti-infective into Peripheral Vein, Percutaneous Approach, New Technology Group 5 (ICD-10-PCS; principal; 2020-07-30)
PROC: 02HV33Z Insertion of Infusion Device into Superior Vena Cava, Percutaneous Approach (ICD-10-PCS; 2020-07-30)
DX: U07.1 COVID-19 (principal); J12.89 Other viral pneumonia; J96.01 Acute respiratory failure with hypoxia; I26.99 Other pulmonary embolism without acute cor pulmonale; E11.42 Type 2 diabetes mellitus with diabetic polyneuropathy; I10 Essential (primary) hypertension; R31.9 Hematuria, unspecified; E78.5 Hyperlipidemia, unspecified; M17.11 Unilateral primary osteoarthritis, right knee; Z79.84 Long term (current) use of oral hypoglycemic drugs; Z79.82 Long term (current) use of aspirin; Z79.899 Other long term (current) drug therapy; Z88.6 Allergy status to analgesic agent
CPT/HCPCS: 36415; 36573; 71045; 71275; 80053; 81001; 82272; 82550; 82553; 82803; 82962; 83036; 84484; 85025; 85027; 85610; 85730; 87040; 87070; 87205; 93005; 93010; 96374; 99285; J0696; J1100; J1642; J1644; J1650; J1815; J1956; J3490; J7050; J7120